=== PATIENT | female | born 1960 | race American Indian/Alaskan Native ===

== ENCOUNTER 2020-05-19 13:21 | Emergency (ER) | payer MEDICAID, OTHER ==
[2020-05-19] MEDS ORDERED: Naloxone 2 MG/2 ML Syringe IVPUSH ONE (13:39)
[2020-05-19] MEDS ORDERED: Naloxone 2 MG/2 ML Syringe ONE (13:40)
--- NOTE | 2020-05-19 13:45 | CR ---
EXAMINATION: Chest 1V Frontal SEX: Female AGE: 59 years CLINICAL HISTORY: 59-year-old unresponsive female emergency department with RESPIRATORY DISTRESS (responded to glucose, Narcan and CPR). Comparison chest 23 November 2010. Interpretation: (AP supine portable) external warp bleaching vat tender leads. *No acute new cardiopulmonary abnormality. Normal cardiac silhouette. No pulmonary vascular congestion, alveolar edema or dependent effusion. No lung mass, hilar lymphadenopathy or focal lobar pneumonia. No atelectasis/collapse. Eli thorax unremarkable. No pneumothorax or pneumomediastinum.
[2020-05-19] MEDS ORDERED: 50% Dextrose in Water 50 ML Syringe IVPUSH ONE (13:46)
[2020-05-19] MEDS: 50% Dextrose in Water 50 ML Syringe ONE ×4 (13:46→17:26)
[2020-05-19 13:52] LABS: ANION GAP 16.8 mEq/L (7-13); CHLORIDE,CL 101 mmol/L (98-107); SODIUM,NA 137 mmol/L (136-145)
[2020-05-19 13:55] LABS: ACETAMINOPHEN 0 ug/mL (10-30 (Therapeutic))
[2020-05-19] MEDS: 50% Dextrose in Water 50 ML Syringe IVPUSH ONE ×2 (15:30→15:31)
--- NOTE | 2020-05-19 16:01 | EDM.PDOC ---
ED HPI GENERAL MEDICAL PROBLEM - General Stated Complaint: CODE BLUE Time Seen by Provider: 05/19/20 13:21 Source of Information: Reports: Family History Limitations: Reports: No Limitations - History of Present Illness INITIAL COMMENTS - FREE TEXT/NARRATIVE: This 59 yo female patient was carried into the ED by her due to her being unresponsive and not breathing. Upon arrival in the ED, the patient was pulseless and apneic. Respirations were assisted with BVM and CPR was initiated. After 1 minute of CPR, the patient did have a pulse and started to breath on her own. The patient was given Narcan and D50 once an IV was established and blood sugar was noted to be 25. After 5-10 minutes, the patient began to respond more appropriately and would awaken on command. The patient was restrained for her own safety while her level of consciousness improved. Onset: Today, Sudden Duration: Constant Location: Reports: Generalized Quality: Reports: Other Severity: Severe Improves with: Reports: None Worsens with: Reports: None Context: Reports: Other - Related Data Allergies Allergy/AdvReac Type Severity Reaction Status Date / Time No Known Allergies Allergy Verified 09/23/15 15:10 Home Meds: Home Meds Fludrocortisone [Florinef] 0.1 mg PO WITHBREAKFAST 09/15/15 [History] Hydrocortisone 10 mg PO ASDIRECTED 09/15/15 [History] sitaGLIPtin Phos/Metformin HCl [Janumet 50-1,000 MG] 1 tab PO BID 11/20/16 [History] Aspirin [Children's Aspirin] 81 mg PO DAILY 11/21/16 [History] Cholecalciferol (Vitamin D3) [Vitamin D3] 1,000 units PO BID 11/21/16 [History] Lisinopril 2.5 mg PO DAILY 11/21/16 [History] Past Medical History HEENT History: Reports: Impaired Vision Genitourinary History: Reports: UTI, Recurrent [employer] History: Reports: Musculoskeletal History: Reports: Arthritis Endocrine/Metabolic History: Reports: [place]'s Disease, Diabetes, Type II - Past Surgical History GI Surgical History: Reports: Appendectomy Social & Family History - Family History Family Medical History: Noncontributory Cardiac: Reports: CAD, Hypertension Endocrine/Metabolic: Reports: Diabetes, type II - Tobacco Use Smoking Status *Q: Never Smoker - Caffeine Use Caffeine Use: Reports: None - Recreational Drug Use Recreational Drug Use: No - Living Situation & Occupation Living situation: Reports: , with Family Occupation: Employed ED ROS GENERAL - Review of Systems Review Of Systems: Comprehensive ROS is negative, except as noted in HPI. ED EXAM, NEURO - Physical Exam Exam: See Below Exam Limited By: Other (Unresponsive) General Appearance: Severe Distress Eye Exam: Bilateral Eye: EOMI, Normal Inspection, PERRL (sluggish, but reactive) Ears: Normal External Exam, Normal Canal, Hearing Grossly Normal, Normal TMs Nose: Normal Inspection, Normal Mucosa, No Blood Throat/Mouth: Normal Inspection, Normal Lips, Normal Teeth, Normal Gums, Normal Oropharynx, Normal Voice, No Airway Compromise Head Exam: Atraumatic, Normocephalic Neck: Normal Inspection, Supple, Non-Tender, Full Range of Motion Respiratory/Chest: Other (Apneic initially) Cardiovascular: Other (pulseless initially) GI/Abdominal: Normal Bowel Sounds, Soft, Non-Tender, No Organomegaly, No Distention, No Abnormal Bruit, No Mass (Female) Exam: Deferred Rectal (Female) Exam: Deferred Neurological: Alert, Normal Mood/Affect, Normal Dorsiflexion, CN II-XII Intact, Normal Plantar Flexion, Normal Gait, Normal Reflexes, No Motor/Sensory Deficits, Oriented x 3 Back Exam: Normal Inspection, Full Range of Motion, NT Extremities: Normal Inspection, Normal Range of Motion, Non-Tender, No Pedal Edema, Normal Capillary Refill Psychiatric: Normal Affect, Normal Mood Skin Exam: Warm, Dry, Intact, Normal Color, No Rash Course - Orders/Labs/Meds Labs: Laboratory Tests 05/19/20 05/19/20 05/19/20 Range/Units 13:15 13:15 13:16 WBC 11.9 H (5.0-10.0) 10^3/uL RBC 5.88 H (4.2-5.4) 10^6/uL Hgb 16.8 H (12.0-16.0) g/dL Hct 48.5 H (37.0-47.0) % MCV 82.5 (80-100) fL MCH 28.6 (27.0-34.0) pg MCHC 34.6 (33.0-35.0) g/dL Plt Count 237 (150-450) 10^3/uL Neut % (Auto) 50.0 (42.2-75.2) % Lymph % (Auto) 37.3 (20.5-50.1) % [place] % (Auto) 9.5 H (2-8) % Eos % (Auto) 2.9 (1.0-3.0) % Baso % (Auto) 0.3 (0.0-1.0) % Sodium (136-145) mmol/L Potassium (3.5-5.1) mmol/L Chloride (98-107) mmol/L Carbon Dioxide (21-32) mmol/L Anion Gap (7-13) mEq/L BUN (7-18) mg/dL Creatinine (0.55-1.02) mg/dL Est Cr Clr Drug Dosing Estimated GFR (MDRD) BUN/Creatinine Ratio (No establ ref range) Glucose (74-99) mg/dL Calcium (8.5-10.1) mg/dL Magnesium (1.8-2.4) mg/dL Total Bilirubin (0.2-1.0) mg/dL AST (15-37) U/L ALT (14-59) U/L Alkaline Phosphatase (46-116) U/L Total Protein (6.4-8.2) g/dL Albumin (3.4-5.0) g/dL Globulin Albumin/Globulin Ratio Urine Color Yellow (YELLOW) Urine Appearance Clear (CLEAR) Urine pH 5.5 (5.0-9.0) Ur Specific [place] 1.025 (1.005-1.030) Urine Protein Negative (NEGATIVE) Urine Glucose (UA) Negative (NEGATIVE) Urine Ketones Negative (NEGATIVE) Urine Occult Blood Negative (NEGATIVE) Urine Nitrite Negative (NEGATIVE) Urine Bilirubin Negative (NEGATIVE) Urine Urobilinogen 0.2 (0.2-1.0) mg/dL Ur Leukocyte Esterase Negative (NEGATIVE) Salicylates (2.8-20(Therapeutic)) mg/dL Urine Opiates Screen Positive H (NEGATIVE) Ur Oxycodone Screen Negative (NEGATIVE) Urine Methadone Screen Negative (NEGATIVE) Acetaminophen (10-30 (Therapeutic)) ug/mL Ur Barbiturates Screen Negative (NEGATIVE) U Tricyclic Antidepress Negative (NEGATIVE) Ur Phencyclidine Scrn Negative (NEGATIVE) Ur Amphetamine Screen Negative (NEGATIVE) U Methamphetamines Scrn Negative (NEGATIVE) Urine MDMA Screen Negative (NEGATIVE) U Benzodiazepines Scrn Negative (NEGATIVE) Urine Cocaine Screen Negative (NEGATIVE) U Marijuana (THC) Screen Negative (NEGATIVE) Ethyl Alcohol (0) mg/dL 05/19/20 05/19/20 Range/Units 13:16 13:16 WBC (5.0-10.0) 10^3/uL RBC (4.2-5.4) 10^6/uL Hgb (12.0-16.0) g/dL Hct (37.0-47.0) % MCV (80-100) fL MCH (27.0-34.0) pg MCHC (33.0-35.0) g/dL Plt Count (150-450) 10^3/uL Neut % (Auto) (42.2-75.2) % Lymph % (Auto) (20.5-50.1) % [place] % (Auto) (2-8) % Eos % (Auto) (1.0-3.0) % Baso % (Auto) (0.0-1.0) % Sodium 137 (136-145) mmol/L Potassium 5.8 H (3.5-5.1) mmol/L Chloride 101 (98-107) mmol/L Carbon Dioxide 25 (21-32) mmol/L Anion Gap 16.8 H (7-13) mEq/L BUN 30 H (7-18) mg/dL Creatinine 1.46 H (0.55-1.02) mg/dL Est Cr Clr Drug Dosing TNP Estimated GFR (MDRD) 37 BUN/Creatinine Ratio 20.5 (No establ ref range) Glucose 21 L* (74-99) mg/dL Calcium 9.9 (8.5-10.1) mg/dL Magnesium 1.6 L (1.8-2.4) mg/dL Total Bilirubin 0.7 (0.2-1.0) mg/dL AST 33 (15-37) U/L ALT 21 (14-59) U/L Alkaline Phosphatase 82 (46-116) U/L Total Protein 8.6 H (6.4-8.2) g/dL Albumin 3.8 (3.4-5.0) g/dL Globulin 4.8 Albumin/Globulin Ratio 0.8 Urine Color (YELLOW) Urine Appearance (CLEAR) Urine pH (5.0-9.0) Ur Specific [place] (1.005-1.030) Urine Protein (NEGATIVE) Urine Glucose (UA) (NEGATIVE) Urine Ketones (NEGATIVE) Urine Occult Blood (NEGATIVE) Urine Nitrite (NEGATIVE) Urine Bilirubin (NEGATIVE) Urine Urobilinogen (0.2-1.0) mg/dL Ur Leukocyte Esterase (NEGATIVE) Salicylates < 2.8 L (2.8-20(Therapeutic)) mg/dL Urine Opiates Screen (NEGATIVE) Ur Oxycodone Screen (NEGATIVE) Urine Methadone Screen (NEGATIVE) Acetaminophen 0 L (10-30 (Therapeutic)) ug/mL Ur Barbiturates Screen (NEGATIVE) U Tricyclic Antidepress (NEGATIVE) Ur Phencyclidine Scrn (NEGATIVE) Ur Amphetamine Screen (NEGATIVE) U Methamphetamines Scrn (NEGATIVE) Urine MDMA Screen (NEGATIVE) U Benzodiazepines Scrn (NEGATIVE) Urine Cocaine Screen (NEGATIVE) U Marijuana (THC) Screen (NEGATIVE) Ethyl Alcohol < 3 (0) mg/dL Meds: Medications Discontinued Medications Generic Name Dose Route Start Last Admin Trade Name Krystal PRN Reason Stop Dose Admin Dextrose/Water Confirm 05/19/20 13:40 05/19/20 13:46 Dextrose 50% In Water Administered 05/19/20 13:41 50 ml Dose Administration 50 ml .ROUTE .STK-MED ONE Dextrose/Water Confirm 05/19/20 15:19 05/19/20 15:30 Dextrose 50% In Water Administered 05/19/20 15:20 50 ml Dose Administration 50 ml .ROUTE .STK-MED ONE Dextrose/Water 50 ml 05/19/20 15:30 05/19/20 15:31 Dextrose 50% In Water IVPUSH 05/19/20 15:31 Not Given ONETIME ONE Naloxone HCl 2 mg 05/19/20 13:39 05/19/20 13:46 Narcan IVPUSH 05/19/20 13:40 2 mg ONETIME ONE Administration Naloxone HCl Confirm 05/19/20 13:40 05/19/20 15:29 Narcan Administered 05/19/20 13:41 Not Given Dose 2 mg .ROUTE .STK-MED ONE Departure - Departure Time of Disposition: 16:05 Disposition: Home, Self-Care 01 Condition: Fair Clinical Impression: Opioid use, Hypoglycemia - Discharge Information *PRESCRIPTION DRUG MONITORING PROGRAM REVIEWED*: Not Applicable *COPY OF PRESCRIPTION DRUG MONITORING REPORT IN PATIENT MARY: Not Applicable Instructions: Hypoglycemia, Warning Signs of Opioid Misuse, Blood Glucose Monitoring, Adult Care Plan Goals: The patient was advised of the examination, lab and treatments given to her. The patient was encouraged to monitor her blood sugar levels and avoid using opiate medications. If the patient has any additional symptoms or concerns, the patient should either return to the emergency department or visit her primary care facility.
== END 2020-05-19 16:32 | disposition home or self-care (01) ==
LOC: DL.ED 13:21
DX: F11.90 Opioid use, unspecified, uncomplicated (principal); E11.649 Type 2 diabetes mellitus with hypoglycemia without coma; Z79.82 Long term (current) use of aspirin; Z79.84 Long term (current) use of oral hypoglycemic drugs; Z90.49 Acquired absence of other specified parts of digestive tract; Z79.899 Other long term (current) drug therapy
CPT/HCPCS: 36415; 71045; 80053; 80305; 80307; 81003; 82962; 83735; 85025; 92950; 96374; 96375; 99285; J2310

== ENCOUNTER 2020-05-20 07:51 | Emergency (ER) | payer OTHER ==
[2020-05-20] MEDS: Naloxone 2 MG/2 ML Syringe ONE ×2 (07:57→09:20)
[2020-05-20] MEDS ORDERED: Lactated Ringers 1,000 ML IV ONE (08:06)
[2020-05-20 08:29] LABS: ANION GAP 14.7 mEq/L (7-13); CHLORIDE,CL 103 mmol/L (98-107); SODIUM,NA 136 mmol/L (136-145)
--- NOTE | 2020-05-20 08:45 | EDM.PDOC ---
ED HPI GENERAL MEDICAL PROBLEM - General Stated Complaint: LOW BLOOD PRESSURE Time Seen by Provider: 05/20/20 07:51 Source of Information: Reports: Patient, EMS, EMS Notes Reviewed, Family, RN, RN Notes Reviewed History Limitations: Reports: Altered Mental Status - History of Present Illness INITIAL COMMENTS - FREE TEXT/NARRATIVE: Patient presents to ER per [facility] with complaint of low blood sugar and low blood pressure. Patient was brought to ER yesterday carried by her and CPR was performed as she was pulseless and apneic. Patient was given Narcan as she was positive for opioids. Patient was then discharged home. Today upon arrival to the ER patient has altered mental status, is restless and agitated. Narcan given again today. EMS reports blood sugar was 27 upon their arrival to the home, D10 was given with a blood sugar of 67 follow-up. Bedside glucose in the ER is 138. Narcan administered again. Patient will respond with "what" when asked questions, but does not answer appropriately. states the patient has been laying on the couch since taken home from the hospital yesterday. Patient incontinent of urine and stool upon arrival to the ER. reports history of diabetes, does not take insulin as she was taken off the insulin, as well as Oregon's disease. Onset: Today, Sudden - Related Data Allergies Allergy/AdvReac Type Severity Reaction Status Date / Time No Known Allergies Allergy Verified 09/23/15 15:10 Home Meds: Home Meds Fludrocortisone [Florinef] 0.1 mg PO WITHBREAKFAST 09/15/15 [History] Hydrocortisone 10 mg PO ASDIRECTED 09/15/15 [History] sitaGLIPtin Phos/Metformin HCl [Janumet 50-1,000 MG] 1 tab PO BID 11/20/16 [History] Aspirin [Children's Aspirin] 81 mg PO DAILY 11/21/16 [History] Cholecalciferol (Vitamin D3) [Vitamin D3] 1,000 units PO BID 11/21/16 [History] Lisinopril 2.5 mg PO DAILY 11/21/16 [History] Past Medical History HEENT History: Reports: Impaired Vision Genitourinary History: Reports: UTI, 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 ED EXAM GENERAL NO PERIP PULSE - Physical Exam Exam: See Below Exam Limited By: Altered Mental Status General Appearance: No Apparent Distress, Lethargic Eye Exam: Bilateral Eye: EOMI, PERRL (3 sluggish) Ears: Normal External Exam, Hearing Grossly Normal Nose: Normal Inspection, Normal Mucosa, No Blood Throat/Mouth: Normal Inspection, Normal Lips, Normal Teeth, Normal Gums, Normal Oropharynx, Normal Voice, No Airway Compromise Head: Atraumatic, Normocephalic Neck: Normal Inspection, Supple, Non-Tender, Full Range of Motion Respiratory/Chest: No Respiratory Distress, No Accessory Muscle Use, Decreased Breath Sounds, Other (chest tenderness from CPR yesterday) Cardiovascular: Normal Peripheral Pulses, No Edema, No Gallop, No JVD, No Murmur, No Rub, Tachycardia GI/Abdominal: Normal Bowel Sounds, Soft, Non-Tender, Other (Incontinent of stool) (Female) Exam: Deferred Rectal (Female) Exam: Deferred Back Exam: Normal Inspection, Full Range of Motion, NT Extremities: Normal Inspection, Normal Range of Motion, Non-Tender, Normal Capillary Refill, No Pedal Edema Neurological: Alert, Inattentive, Slow to Respond Psychiatric: Anxious Skin Exam: Warm, Dry, Intact, Normal Color, No Rash Lymphatic: No Adenopathy Course - Vital Signs Last Recorded V/S: Last Vital Signs Temp 98.2 F 05/20/20 07:31 Pulse 104 H 05/20/20 07:31 Resp 16 05/20/20 07:31 BP 90/46 L 05/20/20 07:31 Pulse Ox 96 05/20/20 07:31 - Orders/Labs/Meds Orders: Active Orders 24 hr Category Date Time Status Blood Glucose Check, Bedside [RC] ONETIME Care 05/20/20 07:51 Active Blood Glucose Check, Bedside [RC] ONETIME Care 05/20/20 10:38 Active EKG Documentation Completion [RC] STAT Care 05/20/20 07:49 Active Sanchez Catheter Insertion [Insert Urinary Catheter] [OM. Care 05/20/20 08:00 Ordered PC] Q24H Urinary Catheter Assessment [RC] ASDIRECTED Care 05/20/20 07:50 Active Norepinephrine [Levophed] 4 mg Med 05/20/20 10:45 Active Dextrose 5% in Water 246 ml IV TITRATE Sodium Chloride 0.9% [Normal Saline] 1,000 ml Med 05/20/20 10:38 Active IV .BOLUS Medication Orders Norepinephrine Bitartrate 4 mg (/ Dextrose/Water) 250 mls @ 7.5 mls/hr IV TITRATE HEMALATHA; Protocol Last Admin: 05/20/20 11:12 Dose: 2 mcg/min, 7.5 mls/hr Documented by: JACOBY Sodium Chloride (Normal Saline) 1,000 mls @ 200 mls/hr IV .BOLUS ONE Stop: 05/20/20 15:37 Last Admin: 05/20/20 11:13 Dose: 200 mls/hr Documented by: JACOBY Labs: Laboratory Tests 05/20/20 05/20/20 05/20/20 Range/Units 07:37 08:00 08:00 WBC 10.9 H (5.0-10.0) 10^3/uL RBC 4.94 (4.2-5.4) 10^6/uL Hgb 14.2 D (12.0-16.0) g/dL Hct 41.4 (37.0-47.0) % MCV 83.8 (80-100) fL MCH 28.7 (27.0-34.0) pg MCHC 34.3 (33.0-35.0) g/dL Plt Count 185 (150-450) 10^3/uL Neut % (Auto) 55.2 (42.2-75.2) % Lymph % (Auto) 31.9 (20.5-50.1) % [place] % (Auto) 11.0 H (2-8) % Eos % (Auto) 1.7 (1.0-3.0) % Baso % (Auto) 0.2 (0.0-1.0) % Sodium 136 (136-145) mmol/L Potassium 4.7 (3.5-5.1) mmol/L Chloride 103 (98-107) mmol/L Carbon Dioxide 23 (21-32) mmol/L Anion Gap 14.7 H (7-13) mEq/L BUN 23 H (7-18) mg/dL Creatinine 1.47 H (0.55-1.02) mg/dL Est Cr Clr Drug Dosing TNP Estimated GFR (MDRD) 36 BUN/Creatinine Ratio 15.6 (No establ ref range) Glucose 153 H (74-99) mg/dL POC Glucose 138 H (70-105) mg/dl Lactic Acid (0.4-2.0) mmol/L Calcium 8.9 (8.5-10.1) mg/dL Total Bilirubin 1.0 (0.2-1.0) mg/dL AST 44 H (15-37) U/L ALT 18 (14-59) U/L Alkaline Phosphatase 62 (46-116) U/L C-Reactive Protein (0.0-0.9) mg/dL Total Protein 6.8 (6.4-8.2) g/dL Albumin 3.0 L (3.4-5.0) g/dL Globulin 3.8 Albumin/Globulin Ratio 0.79 Urine Color (YELLOW) Urine Appearance (CLEAR) Urine pH (5.0-9.0) Ur Specific [place] (1.005-1.030) Urine Protein (NEGATIVE) Urine Glucose (UA) (NEGATIVE) Urine Ketones (NEGATIVE) Urine Occult Blood (NEGATIVE) Urine Nitrite (NEGATIVE) Urine Bilirubin (NEGATIVE) Urine Urobilinogen (0.2-1.0) mg/dL Ur Leukocyte Esterase (NEGATIVE) Urine RBC /HPF Urine WBC (0-5/HPF) /HPF Ur Epithelial Cells (NOT SEEN) /HPF Urine Bacteria (0-FEW/HPF) /HPF Urine Opiates Screen (NEGATIVE) Ur Oxycodone Screen (NEGATIVE) Urine Methadone Screen (NEGATIVE) Ur Barbiturates Screen (NEGATIVE) U Tricyclic Antidepress (NEGATIVE) Ur Phencyclidine Scrn (NEGATIVE) Ur Amphetamine Screen (NEGATIVE) U Methamphetamines Scrn (NEGATIVE) Urine MDMA Screen (NEGATIVE) U Benzodiazepines Scrn (NEGATIVE) Urine Cocaine Screen (NEGATIVE) U Marijuana (THC) Screen (NEGATIVE) Ethyl Alcohol < 3 (0) mg/dL COVID-19 (UNA) (NEGATIVE) 05/20/20 05/20/2005/20/20 Range/Units 08:00 08:00 08:20 WBC (5.0-10.0) 10^3/uL RBC (4.2-5.4) 10^6/uL Hgb (12.0-16.0) g/dL Hct (37.0-47.0) % MCV (80-100) fL MCH (27.0-34.0) pg MCHC (33.0-35.0) g/dL Plt Count (150-450) 10^3/uL Neut % (Auto) (42.2-75.2) % Lymph % (Auto) (20.5-50.1) % [place] % (Auto) (2-8) % Eos % (Auto) (1.0-3.0) % Baso % (Auto) (0.0-1.0) % Sodium (136-145) mmol/L Potassium (3.5-5.1) mmol/L Chloride (98-107) mmol/L Carbon Dioxide (21-32) mmol/L Anion Gap (7-13) mEq/L BUN (7-18) mg/dL Creatinine (0.55-1.02) mg/dL Est Cr Clr Drug Dosing Estimated GFR (MDRD) BUN/Creatinine Ratio (No establ ref range) Glucose (74-99) mg/dL POC Glucose (70-105) mg/dl Lactic Acid 1.6 (0.4-2.0) mmol/L Calcium (8.5-10.1) mg/dL Total Bilirubin (0.2-1.0) mg/dL AST (15-37) U/L ALT (14-59) U/L Alkaline Phosphatase (46-116) U/L C-Reactive Protein 12.5 H (0.0-0.9) mg/dL Total Protein (6.4-8.2) g/dL Albumin (3.4-5.0) g/dL Globulin Albumin/Globulin Ratio Urine Color Yellow (YELLOW) Urine Appearance Clear (CLEAR) Urine pH 5.5 (5.0-9.0) Ur Specific [place] 1.025 (1.005-1.030) Urine Protein Negative (NEGATIVE) Urine Glucose (UA) Negative (NEGATIVE) Urine Ketones 40 H (NEGATIVE) Urine Occult Blood Trace-intact H (NEGATIVE) Urine Nitrite Negative (NEGATIVE) Urine Bilirubin Negative (NEGATIVE) Urine Urobilinogen 0.2 (0.2-1.0) mg/dL Ur Leukocyte Esterase Negative (NEGATIVE) Urine RBC 0-5 /HPF Urine WBC Not seen (0-5/HPF) /HPF Ur Epithelial Cells Rare (NOT SEEN) /HPF Urine Bacteria Not seen (0-FEW/HPF) /HPF Urine Opiates Screen (NEGATIVE) Ur Oxycodone Screen (NEGATIVE) Urine Methadone Screen (NEGATIVE) Ur Barbiturates Screen (NEGATIVE) U Tricyclic Antidepress (NEGATIVE) Ur Phencyclidine Scrn (NEGATIVE) Ur Amphetamine Screen (NEGATIVE) U Methamphetamines Scrn (NEGATIVE) Urine MDMA Screen (NEGATIVE) U Benzodiazepines Scrn (NEGATIVE) Urine Cocaine Screen (NEGATIVE) U Marijuana (THC) Screen (NEGATIVE) Ethyl Alcohol (0) mg/dL COVID-19 (UNA) (NEGATIVE) 05/20/20 05/20/20 05/20/20 Range/Units 08:20 08:32 09:04 WBC (5.0-10.0) 10^3/uL RBC (4.2-5.4) 10^6/uL Hgb (12.0-16.0) g/dL Hct (37.0-47.0) % MCV (80-100) fL MCH (27.0-34.0) pg MCHC (33.0-35.0) g/dL Plt Count (150-450) 10^3/uL Neut % (Auto) (42.2-75.2) % Lymph % (Auto) (20.5-50.1) % [place] % (Auto) (2-8) % Eos % (Auto) (1.0-3.0) % Baso % (Auto) (0.0-1.0) % Sodium (136-145) mmol/L Potassium (3.5-5.1) mmol/L Chloride (98-107) mmol/L Carbon Dioxide (21-32) mmol/L Anion Gap (7-13) mEq/L BUN (7-18) mg/dL Creatinine (0.55-1.02) mg/dL Est Cr Clr Drug Dosing Estimated GFR (MDRD) BUN/Creatinine Ratio (No establ ref range) Glucose (74-99) mg/dL POC Glucose 73 (70-105) mg/dl Lactic Acid (0.4-2.0) mmol/L Calcium (8.5-10.1) mg/dL Total Bilirubin (0.2-1.0) mg/dL AST (15-37) U/L ALT (14-59) U/L Alkaline Phosphatase (46-116) U/L C-Reactive Protein (0.0-0.9) mg/dL Total Protein (6.4-8.2) g/dL Albumin (3.4-5.0) g/dL Globulin Albumin/Globulin Ratio Urine Color (YELLOW) Urine Appearance (CLEAR) Urine pH (5.0-9.0) Ur Specific [place] (1.005-1.030) Urine Protein (NEGATIVE) Urine Glucose (UA) (NEGATIVE) Urine Ketones (NEGATIVE) Urine Occult Blood (NEGATIVE) Urine Nitrite (NEGATIVE) Urine Bilirubin (NEGATIVE) Urine Urobilinogen (0.2-1.0) mg/dL Ur Leukocyte Esterase (NEGATIVE) Urine RBC /HPF Urine WBC (0-5/HPF) /HPF Ur Epithelial Cells (NOT SEEN) /HPF Urine Bacteria (0-FEW/HPF) /HPF Urine Opiates Screen Positive H (NEGATIVE) Ur Oxycodone Screen Negative (NEGATIVE) Urine Methadone Screen Negative (NEGATIVE) Ur Barbiturates Screen Negative (NEGATIVE) U Tricyclic Antidepress Negative (NEGATIVE) Ur Phencyclidine Scrn Negative (NEGATIVE) Ur Amphetamine Screen Negative (NEGATIVE) U Methamphetamines Scrn Negative (NEGATIVE) Urine MDMA Screen Negative (NEGATIVE) U Benzodiazepines Scrn Negative (NEGATIVE) Urine Cocaine Screen Negative (NEGATIVE) U Marijuana (THC) Screen Negative (NEGATIVE) Ethyl Alcohol (0) mg/dL COVID-19 (UNA) Negative (NEGATIVE) Meds: Medications Generic Name Dose Route Start Last Admin Trade Name Freq PRN Reason Stop Dose Admin Norepinephrine Bitartrate 4 mg 250 mls @ 7.5 mls/hr 05/20/20 10:45 05/20/20 11:12 / Dextrose/Water IV 2 mcg/min TITRATE HEMALATHA 7.5 mls/hr Administration Protocol 2 MCG/MIN Sodium Chloride 1,000 mls @ 200 mls/hr 05/20/20 10:38 05/20/20 11:13 Normal Saline IV 05/20/20 15:37 200 mls/hr .BOLUS ONE Administration Discontinued Medications Generic Name Dose Route Start Last Admin Trade Name Krystal PRN Reason Stop Dose Admin Dexamethasone 8 mg 05/20/20 09:51 05/20/20 10:06 Dexamethasone IVPUSH 05/20/20 09:52 8 mg ONETIME ONE Administration Dextrose/Water 50 ml 05/20/20 09:07 05/20/20 09:15 Dextrose 50% In Water IVPUSH 05/20/20 09:08 50 ml ONETIME ONE Administration Hydrocortisone Sodium Succinate 100 mg 05/20/20 10:24 05/20/20 10:35 Solu-Cortef IVPUSH 05/20/20 10:25 100 mg ONETIME ONE Administration Lactated Ringer's 1,000 mls @ 999 mls/hr 05/20/20 08:06 05/20/20 08:03 Ringers, Lactated IV 05/20/20 09:06 999 mls/hr .BOLUS ONE Administration Sodium Chloride 1,000 mls @ 999 mls/hr 05/20/20 09:07 05/20/20 09:11 Normal Saline IV 05/20/20 10:07 999 mls/hr .BOLUS ONE Administration Naloxone HCl Confirm 05/20/20 07:57 05/20/20 09:20 Narcan Administered 05/20/20 07:58 Not Given Dose 2 mg .ROUTE .STK-MED ONE Naloxone HCl 2 mg 05/20/20 09:19 05/20/20 07:57 Narcan IVPUSH 05/20/20 09:20 2 mg ONETIME ONE Administration - Radiology Interpretation Free Text/Narrative:: Head CT wo contrast: PROCEDURE INFORMATION: Exam: CT Head Without Contrast Exam date and time: 05/20/2020 9:26 AM Age: 59 years old Clinical indication: Altered mental status/memory loss TECHNIQUE: Imaging protocol: Computed tomography of the head without contrast. Radiation optimization: All CT scans at this facility use at least one of these dose optimization techniques: automated exposure control; mA and/or kV adjustment per patient size (includes targeted exams where dose is matched to clinical indication); or iterative reconstruction. COMPARISON: No relevant prior studies available. FINDINGS: Brain: Normal. No hemorrhage. Unremarkable white matter. No mass effect. Ventricles: Normal. No ventriculomegaly. Bones/joints: Unremarkable. No acute fracture. Sinuses: Visualized sinuses are unremarkable. No fluid levels. Mastoid air cells: Visualized mastoid air cells are well aerated. Soft tissues: Unremarkable. IMPRESSION: No acute intracranial abnormality. Thank you for allowing us to participate in the care of your patient. Dictated and Authenticated by: El Mattson MD 05/20/2020 9:55 AM Central Time ([place] & [place]) See rad report - Re-Assessments/Exams Free Text/Narrative Re-Assessment/Exam: 05/20/20 10:39 Patient case discussed with Dr. Youngblood in the ER at [facility]. Dr. Youngblood agreed to accept the patient for transfer to [facility]. Departure - Departure Time of Disposition: 11:18 Disposition: DC/Tfer to [facility] Condition: Serious Clinical Impression: Hypoglycemia, Addisons disease, Acute adrenal crisis, Opiate abuse, continuous Diabetes mellitus Qualifiers: Diabetes mellitus type: type 2 Diabetes mellitus moth exterminator insulin use: without moth exterminator use Diabetes mellitus complication status: with hypoglycemia Diabetes mellitus complication detail: without coma Qualified Code(s): E11.649 - Type 2 diabetes mellitus with hypoglycemia without coma - Discharge Information *PRESCRIPTION DRUG MONITORING PROGRAM REVIEWED*: No *COPY OF PRESCRIPTION DRUG MONITORING REPORT IN PATIENT MARY: No Forms: ED Department Discharge, Interfacility Transfer [facility] Sepsis Event Note (ED) - Focused Exam Vital Signs: Vital Signs Temp Pulse Resp BP Pulse Ox 05/20/20 07:31 98.2 F 104 H 16 90/46 L 96 - My Orders Last 24 Hours: My Active Orders 05/20/20 07:49 EKG Documentation Completion [RC] STAT 05/20/20 07:50 Urinary Catheter Assessment [RC] ASDIRECTED 05/20/20 07:51 Blood Glucose Check, Bedside [RC] ONETIME 05/20/20 08:00 Sanchez Catheter Insertion [Insert Urinary Catheter] [OM.PC] Q24H 05/20/20 10:38 Blood Glucose Check, Bedside [RC] ONETIME Sodium Chloride 0.9% [Normal Saline] 1,000 ml IV .BOLUS 05/20/20 10:45 Norepinephrine [Levophed] 4 mg Dextrose 5% in Water 246 ml IV TITRATE - Assessment/Plan Last 24 Hours: My Active Orders 05/20/20 07:49 EKG Documentation Completion [RC] STAT 05/20/20 07:50 Urinary Catheter Assessment [RC] ASDIRECTED 05/20/20 07:51 Blood Glucose Check, Bedside [RC] ONETIME 05/20/20 08:00 Sanchez Catheter Insertion [Insert Urinary Catheter] [OM.PC] Q24H 05/20/20 10:38 Blood Glucose Check, Bedside [RC] ONETIME Sodium Chloride 0.9% [Normal Saline] 1,000 ml IV .BOLUS 05/20/20 10:45 Norepinephrine [Levophed] 4 mg Dextrose 5% in Water 246 ml IV TITRATE
[2020-05-20 09:00] VITALS: BP 90/46; PULSE 104
[2020-05-20] MEDS ORDERED: 50% Dextrose in Water 50 ML Syringe IVPUSH ONE (09:07)
[2020-05-20] MEDS ORDERED: Sodium Chloride 0.9% 1,000 ML IV ONE ×2 (09:07→10:38)
[2020-05-20] MEDS ORDERED: Naloxone 2 MG/2 ML Syringe IVPUSH ONE (09:19)
[2020-05-20] MEDS ORDERED: Dexamethasone 4 MG/ML SDV IVPUSH ONE (09:51)
--- NOTE | 2020-05-20 09:55 | CT ---
PROCEDURE INFORMATION: Exam: CT Head Without Contrast Exam date and time: 05/20/2020 9:26 AM Age: 59 years old Clinical indication: Altered mental status/memory loss TECHNIQUE: Imaging protocol: Computed tomography of the head without contrast. Radiation optimization: All CT scans at this facility use at least one of these dose optimization techniques: automated exposure control; mA and/or kV adjustment per patient size (includes targeted exams where dose is matched to clinical indication); or iterative reconstruction. COMPARISON: No relevant prior studies available. FINDINGS: Brain: Normal. No hemorrhage. Unremarkable white matter. No mass effect. Ventricles: Normal. No ventriculomegaly. Bones/joints: Unremarkable. No acute fracture. Sinuses: Visualized sinuses are unremarkable. No fluid levels. Mastoid air cells: Visualized mastoid air cells are well aerated. Soft tissues: Unremarkable. IMPRESSION: No acute intracranial abnormality.
[2020-05-20] MEDS ORDERED: Hydrocortisone Sodium Succinate 100 MG/2 ML SDV IVPUSH ONE (10:24)
[2020-05-20] MEDS ORDERED: Norepinephrine 4 MG in Dextrose 5% in Water 246 ML IV SCH ×2 (10:45)
== END 2020-05-20 11:24 ==
LOC: DL.ED 07:51
DX: E11.649 Type 2 diabetes mellitus with hypoglycemia without coma (principal); E27.1 Primary adrenocortical insufficiency; E27.2 Addisonian crisis; F11.10 Opioid abuse, uncomplicated; M19.90 Unspecified osteoarthritis, unspecified site; Z79.82 Long term (current) use of aspirin; Z79.899 Other long term (current) drug therapy; Z20.828 Contact with and (suspected) exposure to other viral communicable diseases
CPT/HCPCS: 36415; 51702; 70450; 80053; 80305-QW; 80307; 81001; 82962; 83605; 85025; 86140; 93005; 96361; 96374; 96375; 99284; 99285-25; J1100; J1720; J2310; J7030; J7060; J7120; U0002

== ENCOUNTER 2020-09-24 14:08 | Emergency (ER) | payer MEDICAID, OTHER ==
[2020-09-24 14:16] VITALS: BP 109/69; PULSE 114
--- NOTE | 2020-09-24 14:36 | EDM.PDOC ---
ED HPI GENERAL MEDICAL PROBLEM - General Chief Complaint: Diabetic Complaint Stated Complaint: AMBULANCE Time Seen by Provider: 09/24/20 14:20 Source of Information: Reports: EMS Notes Reviewed, RN, RN Notes Reviewed History Limitations: Reports: Altered Mental Status - History of Present Illness INITIAL COMMENTS - FREE TEXT/NARRATIVE: 60 year-old female with a history of DM and [place] who presents to the ER unresponsive. Patient is reported to have been seen last well 14 hours ago. EMS reports a tooth infection one year ago. Temperature was 105 with pupils 4 mm and brisk bilaterally. Vital signs stable at this time. Patient is noted to be unresponsive to painful stimuli. BS was normal. 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: EKG, IV/IO - Related Data Allergies Allergy/AdvReac Type Severity Reaction Status Date / Time No Known Allergies Allergy Verified 09/23/15 15:10 Home Meds: Home Meds Fludrocortisone [Florinef] 0.1 mg PO WITHBREAKFAST 09/15/15 [History] Hydrocortisone 10 mg PO ASDIRECTED 09/15/15 [History] sitaGLIPtin Phos/Metformin HCl [Janumet 50-1,000 MG] 1 tab PO BID 11/20/16 [History] Aspirin [Children's Aspirin] 81 mg PO DAILY 11/21/16 [History] Cholecalciferol (Vitamin D3) [Vitamin D3] 1,000 units PO BID 11/21/16 [History] Lisinopril 2.5 mg PO DAILY 11/21/16 [History] Past Medical History HEENT History: Reports: Impaired Vision Genitourinary History: Reports: UTI, Recurrent [employer] History: Reports: Musculoskeletal History: Reports: Arthritis Endocrine/Metabolic History: Reports: [place]'s Disease, Diabetes, Type II - Past Surgical History GI Surgical History: Reports: Appendectomy Social & Family History - Family History Family Medical History: No Pertinent Family History Cardiac: Reports: CAD, Hypertension Endocrine/Metabolic: Reports: Diabetes, type II - Caffeine Use Caffeine Use: Reports: None - Living Situation & Occupation Living situation: Reports: , with Family Occupation: Employed ED ROS GENERAL - Review of Systems Review Of Systems: Unable To Obtain Reason Not Obtained: Patient unresponsive ED EXAM GENERAL NO PERIP PULSE - Physical Exam Exam: See Below Exam Limited By: Other (Unrespomnsive) General Appearance: Other (Unresponsive) Eye Exam: Bilateral Eye: Normal Inspection Ears: Normal External Exam, Normal Canal, Hearing Grossly Normal, Normal TMs Nose: Normal Inspection, Normal Mucosa, No Blood Head: Atraumatic, Normocephalic Neck: Normal Inspection Respiratory/Chest: No Respiratory Distress, No Accessory Muscle Use, Rhonchi (in the lower lobes bilaterally) Cardiovascular: Normal Peripheral Pulses, Regular Rate, Rhythm, No Edema GI/Abdominal: Normal Bowel Sounds, Soft, No Distention (Female) Exam: Deferred Rectal (Female) Exam: Deferred Extremities: Normal Inspection, No Pedal Edema Neurological: Unresponsive Skin Exam: Warm, Dry Course - Vital Signs Last Recorded V/S: Last Vital Signs Temp 102.4 F H 09/24/20 16:50 Pulse 114 H 09/24/20 14:08 Resp BP 109/69 09/24/20 14:08 Pulse Ox 94 L 09/24/20 14:08 - Orders/Labs/Meds Labs: Laboratory Tests 09/24/20 09/24/20 09/24/20 Range/Units 14:27 14:29 14:29 WBC 11.3 H (5.0-10.0) 10^3/uL RBC 6.06 H (4.2-5.4) 10^6/uL Hgb 17.3 H D (12.0-16.0) g/dL Hct 49.3 H (37.0-47.0) % MCV 81.4 (80-100) fL MCH 28.5 (27.0-34.0) pg MCHC 35.1 H (33.0-35.0) g/dL Plt Count 166 (150-450) 10^3/uL Neut % (Auto) 48.2 (42.2-75.2) % Lymph % (Auto) 29.2 (20.5-50.1) % [place] % (Auto) 21.0 H (2-8) % Eos % (Auto) 1.4 (1.0-3.0) % Baso % (Auto) 0.2 (0.0-1.0) % Add Manual Diff Yes Neutrophils % (Manual) 46 (42-75) % Lymphocytes % (Manual) 29 (20-50) % Monocytes % (Manual) 24 H (2-8) % Eosinophils % (Manual) 1 (1-3) % Sodium 137 (136-145) mmol/L Potassium 3.3 L (3.5-5.1) mmol/L Chloride 99 (98-107) mmol/L Carbon Dioxide 25 (21-32) mmol/L Anion Gap 16.3 H (7-13) mEq/L BUN 19 H (7-18) mg/dL Creatinine 1.40 H (0.55-1.02) mg/dL Est Cr Clr Drug Dosing TNP Estimated GFR (MDRD) 38 BUN/Creatinine Ratio 13.6 (No establ ref range) Glucose 88 (74-99) mg/dL Lactic Acid (0.4-2.0) mmol/L Calcium 8.8 (8.5-10.1) mg/dL Total Bilirubin 0.7 (0.2-1.0) mg/dL AST 53 H (15-37) U/L ALT 39 (14-59) U/L Alkaline Phosphatase 110 (46-116) U/L Total Protein 7.5 (6.4-8.2) g/dL Albumin 3.9 (3.4-5.0) g/dL Globulin 3.6 Albumin/Globulin Ratio 1.1 TSH, Ultra Sensitive (0.36-3.74) uIU/mL Urine Color (YELLOW) Urine Appearance (CLEAR) Urine pH (5.0-9.0) Ur Specific [place] (1.005-1.030) Urine Protein (NEGATIVE) Urine Glucose (UA) (NEGATIVE) Urine Ketones (NEGATIVE) Urine Occult Blood (NEGATIVE) Urine Nitrite (NEGATIVE) Urine Bilirubin (NEGATIVE) Urine Urobilinogen (0.2-1.0) mg/dL Ur Leukocyte Esterase (NEGATIVE) Urine RBC /HPF Urine WBC (0-5/HPF) /HPF Ur Epithelial Cells (NOT SEEN) /HPF Amorphous Sediment (NOT SEEN) /HPF Urine Bacteria (0-FEW/HPF) /HPF Urine Mucus (NOT SEEN) /LPF Urine Opiates Screen (NEGATIVE) Ur Oxycodone Screen (NEGATIVE) Urine Methadone Screen (NEGATIVE) Ur Barbiturates Screen (NEGATIVE) U Tricyclic Antidepress (NEGATIVE) Ur Phencyclidine Scrn (NEGATIVE) Ur Amphetamine Screen (NEGATIVE) U Methamphetamines Scrn (NEGATIVE) Urine MDMA Screen (NEGATIVE) U Benzodiazepines Scrn (NEGATIVE) Urine Cocaine Screen (NEGATIVE) U Marijuana (THC) Screen (NEGATIVE) SARS-CoV-2 RNA (UNA) Positive H (NEGATIVE) 09/24/20 09/24/20 09/24/20 Range/Units 14:29 14:29 15:10 WBC (5.0-10.0) 10^3/uL RBC (4.2-5.4) 10^6/uL Hgb (12.0-16.0) g/dL Hct (37.0-47.0) % MCV (80-100) fL MCH (27.0-34.0) pg MCHC (33.0-35.0) g/dL Plt Count (150-450) 10^3/uL Neut % (Auto) (42.2-75.2) % Lymph % (Auto) (20.5-50.1) % [place] % (Auto) (2-8) % Eos % (Auto) (1.0-3.0) % Baso % (Auto) (0.0-1.0) % Add Manual Diff Neutrophils % (Manual) (42-75) % Lymphocytes % (Manual) (20-50) % Monocytes % (Manual) (2-8) % Eosinophils % (Manual) (1-3) % Sodium (136-145) mmol/L Potassium (3.5-5.1) mmol/L Chloride (98-107) mmol/L Carbon Dioxide (21-32) mmol/L Anion Gap (7-13) mEq/L BUN (7-18) mg/dL Creatinine (0.55-1.02) mg/dL Est Cr Clr Drug Dosing Estimated GFR (MDRD) BUN/Creatinine Ratio (No establ ref range) Glucose (74-99) mg/dL Lactic Acid 1.1 (0.4-2.0) mmol/L Calcium (8.5-10.1) mg/dL Total Bilirubin (0.2-1.0) mg/dL AST (15-37) U/L ALT (14-59) U/L Alkaline Phosphatase (46-116) U/L Total Protein (6.4-8.2) g/dL Albumin (3.4-5.0) g/dL Globulin Albumin/Globulin Ratio TSH, Ultra Sensitive 1.91 (0.36-3.74) uIU/mL Urine Color (YELLOW) Urine Appearance (CLEAR) Urine pH (5.0-9.0) Ur Specific [place] (1.005-1.030) Urine Protein (NEGATIVE) Urine Glucose (UA) (NEGATIVE) Urine Ketones (NEGATIVE) Urine Occult Blood (NEGATIVE) Urine Nitrite (NEGATIVE) Urine Bilirubin (NEGATIVE) Urine Urobilinogen (0.2-1.0) mg/dL Ur Leukocyte Esterase (NEGATIVE) Urine RBC /HPF Urine WBC (0-5/HPF) /HPF Ur Epithelial Cells (NOT SEEN) /HPF Amorphous Sediment (NOT SEEN) /HPF Urine Bacteria (0-FEW/HPF) /HPF Urine Mucus (NOT SEEN) /LPF Urine Opiates Screen Negative (NEGATIVE) Ur Oxycodone Screen Negative (NEGATIVE) Urine Methadone Screen Negative (NEGATIVE) Ur Barbiturates Screen Negative (NEGATIVE) U Tricyclic Antidepress Negative (NEGATIVE) Ur Phencyclidine Scrn Negative (NEGATIVE) Ur Amphetamine Screen Negative (NEGATIVE) U Methamphetamines Scrn Negative (NEGATIVE) Urine MDMA Screen Negative (NEGATIVE) U Benzodiazepines Scrn Negative (NEGATIVE) Urine Cocaine Screen Negative (NEGATIVE) U Marijuana (THC) Screen Negative (NEGATIVE) SARS-CoV-2 RNA (UNA) (NEGATIVE) 09/24/ Range/Units 15:10 WBC (5.0-10.0) 10^3/uL RBC (4.2-5.4) 10^6/uL Hgb (12.0-16.0) g/dL Hct (37.0-47.0) % MCV (80-100) fL MCH (27.0-34.0) pg MCHC (33.0-35.0) g/dL Plt Count (150-450) 10^3/uL Neut % (Auto) (42.2-75.2) % Lymph % (Auto) (20.5-50.1) % [place] % (Auto) (2-8) % Eos % (Auto) (1.0-3.0) % Baso % (Auto) (0.0-1.0) % Add Manual Diff Neutrophils % (Manual) (42-75) % Lymphocytes % (Manual) (20-50) % Monocytes % (Manual) (2-8) % Eosinophils % (Manual) (1-3) % Sodium (136-145) mmol/L Potassium (3.5-5.1) mmol/L Chloride (98-107) mmol/L Carbon Dioxide (21-32) mmol/L Anion Gap (7-13) mEq/L BUN (7-18) mg/dL Creatinine (0.55-1.02) mg/dL Est Cr Clr Drug Dosing Estimated GFR (MDRD) BUN/Creatinine Ratio (No establ ref range) Glucose (74-99) mg/dL Lactic Acid (0.4-2.0) mmol/L Calcium (8.5-10.1) mg/dL Total Bilirubin (0.2-1.0) mg/dL AST (15-37) U/L ALT (14-59) U/L Alkaline Phosphatase (46-116) U/L Total Protein (6.4-8.2) g/dL Albumin (3.4-5.0) g/dL Globulin Albumin/Globulin Ratio TSH, Ultra Sensitive (0.36-3.74) uIU/mL Urine Color Yellow (YELLOW) Urine Appearance Slightly cloudy (CLEAR) Urine pH 5.5 (5.0-9.0) Ur Specific [place] 1.025 (1.005-1.030) Urine Protein 30 H (NEGATIVE) Urine Glucose (UA) Negative (NEGATIVE) Urine Ketones Negative (NEGATIVE) Urine Occult Blood Moderate H (NEGATIVE) Urine Nitrite Negative (NEGATIVE) Urine Bilirubin Negative (NEGATIVE) Urine Urobilinogen 0.2 (0.2-1.0) mg/dL Ur Leukocyte Esterase Negative (NEGATIVE) Urine RBC 10-20 H /HPF Urine WBC 0-5 (0-5/HPF) /HPF Ur Epithelial Cells Few (NOT SEEN) /HPF Amorphous Sediment Few (NOT SEEN) /HPF Urine Bacteria Rare (0-FEW/HPF) /HPF Urine Mucus Few H (NOT SEEN) /LPF Urine Opiates Screen (NEGATIVE) Ur Oxycodone Screen (NEGATIVE) Urine Methadone Screen (NEGATIVE) Ur Barbiturates Screen (NEGATIVE) U Tricyclic Antidepress (NEGATIVE) Ur Phencyclidine Scrn (NEGATIVE) Ur Amphetamine Screen (NEGATIVE) U Methamphetamines Scrn (NEGATIVE) Urine MDMA Screen (NEGATIVE) U Benzodiazepines Scrn (NEGATIVE) Urine Cocaine Screen (NEGATIVE) U Marijuana (THC) Screen (NEGATIVE) SARS-CoV-2 RNA (UNA) (NEGATIVE) Meds: Medications Discontinued Medications Generic Name Dose Route Start Last Admin Trade Name Freq PRN Reason Stop Dose Admin Acetaminophen 650 mg 09/24/20 16:18 09/24/20 16:23 Tylenol RECTAL 09/24/20 16:19 650 mg NOW STA Administration - Re-Assessments/Exams Free Text/Narrative Re-Assessment/Exam: reviewed patient findings, Labs and Ct can results with through [facility] and she was accepted for transfer for CVA rule out with COVID-19. Patient was reported to have open her eyes in the CT room and looked around but did not respond to any question. She was also positive for COVID-19. She was also moving her arms when straight-cath for a urine sample. Tylenol 650 mg was administered rectal for fever control. updated on patient's status. 09/26/20 19:09 Departure - Departure Time of Disposition: 16:20 Disposition: Admitted As Inpatient 66 Condition: Poor Clinical Impression: COVID-19 CVA (cerebral vascular accident) Qualifiers: CVA mechanism: unspecified Qualified Code(s): I63.9 - Cerebral infarction, un specified - Discharge Information Forms: ED Department Discharge, Interfacility Transfer [facility] Sepsis Event Note (ED) - Evaluation Sepsis Screening Result: No Definite Risk
[2020-09-24 15:01] LABS: ANION GAP 16.3 mEq/L (7-13); CHLORIDE,CL 99 mmol/L (98-107); SODIUM,NA 137 mmol/L (136-145)
--- NOTE | 2020-09-24 15:04 | CT ---
PROCEDURE INFORMATION: Exam: CT Head Without Contrast Exam date and time: 09/24/2020 2:51 PM Age: 60 years old Clinical indication: Other: Unresponsive TECHNIQUE: Imaging protocol: Computed tomography of the head without contrast. Radiation optimization: All CT scans at this facility use at least one of these dose optimization techniques: automated exposure control; mA and/or kV adjustment per patient size (includes targeted exams where dose is matched to clinical indication); or iterative reconstruction. COMPARISON: CT Head wo Cont 05/20/2020 9:26 AM FINDINGS: Brain: No acute hemorrhage. Unremarkable white matter. No mass effect. There is a slightly prominent right MCA branch vessel in the sylvian fissure, see image 13 series 2. Cerebral ventricles: No ventriculomegaly. Bones/joints: Unremarkable. No acute fracture. Paranasal sinuses: Visualized sinuses are unremarkable. No fluid levels. Mastoid air cells: Visualized mastoid air cells are well aerated. Soft tissues: Unremarkable. IMPRESSION: No acute intracranial hemorrhage. No mass effect. Slightly prominent peripheral right MCA branch vessel. If there is concern for a CVA, CT angiogram would be advised to further evaluate
--- NOTE | 2020-09-24 15:08 | CR ---
PROCEDURE INFORMATION: Exam: XR Chest, 1 View Exam date and time: 09/24/2020 3:03 PM Age: 60 years old Clinical indication: Other: Unresponsive TECHNIQUE: Imaging protocol: XR of the chest Views: 1 view. COMPARISON: CR Chest 1V Frontal 05/19/2020 1:28 PM FINDINGS: Lungs: Unremarkable. No consolidation. Pleural space: Unremarkable. No pleural effusion. No pneumothorax. Heart/Mediastinum: Unremarkable. No cardiomegaly. Bones/joints: Unremarkable. IMPRESSION: No acute findings.
[2020-09-24] MEDS ORDERED: Acetaminophen 650 MG Supp RECTAL STA (16:18)
== END 2020-09-24 16:50 | disposition critical access hospital (66) ==
LOC: DL.ED 14:08
DX: U07.1 COVID-19 (principal); I63.9 Cerebral infarction, unspecified; M19.90 Unspecified osteoarthritis, unspecified site; E11.9 Type 2 diabetes mellitus without complications; Z79.82 Long term (current) use of aspirin; Z79.84 Long term (current) use of oral hypoglycemic drugs; Z79.899 Other long term (current) drug therapy
CPT/HCPCS: 36415; 70450; 71045; 80053; 80305; 81001; 83605; 84443; 85025; 87040; 87635; 93005; 99285; A9270; U0002

== ENCOUNTER 2021-06-30 17:09 | Inpatient (IN) | payer MEDICAID ==
[2021-06-30] MEDS ORDERED: Dexamethasone 4 MG/ML SDV IVPUSH ONE (17:33)
[2021-06-30] MEDS ORDERED: Ondansetron 4 MG/2 ML SDV IV ONE (17:34)
[2021-06-30] MEDS ORDERED: Sodium Chloride 0.9% 1,000 ML IV ONE ×5 (17:34→23:16)
[2021-06-30] MEDS ORDERED: Sodium Chloride 0.9% 10 ML Syringe FLUSH PRN (17:35)
[2021-06-30 18:19] LABS: ANION GAP 18.1 mEq/L (7-13); CHLORIDE,CL 93 mmol/L (98-107); SODIUM,NA 130 mmol/L (136-145)
--- NOTE | 2021-06-30 18:54 | EDM.PDOC ---
Scribed by Sybil Leonard 06/30/21 2433 for Phoenix Augustin MD <Phoenix Augustin - Last Filed: 06/30/21 18:52> ED HPI GENERAL MEDICAL PROBLEM - General Chief Complaint: Abdominal Pain Stated Complaint: FLU FOR FOUR DAYS, NOT GETTING BETTER,NOT EATING Time Seen by Provider: 06/30/21 17:33 Source of Information: Reports: Patient, RN, RN Notes Reviewed History Limitations: Reports: No Limitations - History of Present Illness INITIAL COMMENTS - FREE TEXT/NARRATIVE: Patient presents to ED by POV stating that she has not felt well for several days with complaint of nausea, vomiting, diarrhea and generalized abdominal discomfort. She states for the past 1 to 2 days she has mostly stayed in bed with the exception of running to the bathroom for diarrhea. She has loss of appetite and has been unable to keep any food or liquid down. 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 Denies fevers, chills, cough or chest pain. She denies any lightheadedness or syncope. Onset: Gradual Duration: Getting Worse Location: Reports: Abdomen Quality: Reports: Ache Severity: Severe Improves with: Reports: None Worsens with: Reports: None Associated Symptoms: Reports: No Other Symptoms - Related Data Allergies Allergy/AdvReac Type Severity Reaction Status Date / Time No Known Allergies Allergy Verified 06/30/21 18:07 Home Meds: Home Meds Fludrocortisone [Florinef] 0.1 mg PO WITHBREAKFAST 09/15/15 [History] Hydrocortisone 10 mg PO .2PM 09/15/15 [History] Lisinopril 2.5 mg PO DAILY 11/21/16 [History] Aspirin [Aspirin EC] 81 mg PO DAILY 06/30/21 [History] Cholecalciferol (Vitamin D3) [Vitamin D3] 75 mcg PO DAILY 06/30/21 [History] Clopidogrel Bisulfate [Plavix] 75 mg PO DAILY 06/30/21 [History] Hydrocortisone 20 mg PO .MORNING 06/30/21 [History] atorvaSTATin Calcium [Atorvastatin Calcium] 40 mg PO .EVENING 06/30/21 [History] metFORMIN [Glucophage] 500 mg PO DAILY 06/30/21 [History] Past Medical History HEENT History: Reports: Impaired Vision Genitourinary History: Reports: UTI, Recurrent 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: Musculoskeletal History: Reports: Arthritis Endocrine/Metabolic History: Reports: [place]'s Disease, Diabetes, Type II - Past Surgical History GI Surgical History: Reports: Appendectomy Social & Family History - Family History Family Medical History: No Pertinent Family History Cardiac: Reports: CAD, Hypertension Endocrine/Metabolic: Reports: Diabetes, type II - Caffeine Use Caffeine Use: Reports: None - Living Situation & Occupation Living situation: Reports: , with Family Occupation: Employed ED ROS GENERAL - Review of Systems Review Of Systems: Comprehensive ROS is negative, except as noted in HPI. ED EXAM, GENERAL - Physical Exam Exam: See Below Exam Limited By: No Limitations General Appearance: Alert, No Apparent Distress, Other (Chronically ill appearing) Eye Exam: Bilateral Eye: Normal Inspection Nose: Normal Inspection Throat/Mouth: Normal Inspection, Normal Lips, Normal Voice, No Airway Compromise Head: Atraumatic, Normocephalic Neck: Normal Inspection Respiratory/Chest: No Respiratory Distress, Lungs Clear, Normal Breath Sounds, No Accessory Muscle Use, Chest Non-Tender Cardiovascular: Regular Rate, Rhythm, No Edema GI/Abdominal: Normal Bowel Sounds, Soft, No Organomegaly, No Distention, Tender (Mild generalized tenderness). No: Guarding, Rigid, Rebound (Female) Exam: Deferred Rectal (Female) Exam: Deferred Back Exam: Full Range of Motion. 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 Departure - Departure Disposition: Admitted As Inpatient 66 Clinical Impression: Addisonian crisis Hypotension Qualifiers: Hypotension type: unspecified hypotension type Qualified Code(s): I95.9 - Hypotension, unspecified - Discharge Information Forms: ED Department Discharge <Neetu Fields - Last Filed: 07/01/21 00:44> #1 Interpretation EKG Date: 06/30/21 Time: 21:55 Rhythm: NSR Rate (Beats/Min): 56 Welch: Normal P-Wave: Present QRS: RBBB Comparison: Change From Previous EKG Course - Radiology Interpretation Free Text/Narrative:: Chest xray: [facility] Final Radiology Report Call: [phone] assistance Online chat: [email or web address] Name: LENIN DE LEON Age: 60Years F Date: 06/30/2021 SSN: -- : 1960 Study: CR CHEST 1V FRONTAL Requesting Physician: Neetu Fields Images: 1 Addl Studies: Provided Clinical History: chest pain Contrast: Contrast Medium: Contrast Amount: Contrast Method: CONFIDENTIALITY STATEMENT This report is intended only for use by the referring physician, and only in accordance with law. If you received this in error, call [phone]. Page 1 of 1 PROCEDURE INFORMATION: Exam: XR Chest Exam date and time: 06/30/2021 11:16 PM Age: 60 years old Clinical indication: Pain; Left-sided; Additional info: Chest pain TECHNIQUE: Imaging protocol: XR of the chest. Views: 1 view. COMPARISON: CR Chest 1V Frontal 09/24/2020 3:03 PM FINDINGS: Lungs: Mildly prominent interstitial markings and mild peribronchial cuffing in both lungs. No focal airspace opacities. Pleural spaces: Unremarkable. No pleural effusion. No pneumothorax. Heart/Mediastinum: Unremarkable. No cardiomegaly. Diaphragm: Mildly elevated right hemidiaphragm. Bones/joints: Unremarkable. IMPRESSION: Mildly prominent interstitial markings and mild peribronchial cuffing in both lungs which are nonspecific findings but may be seen with bronchitis. No consolidation. Thank you for allowing us to participate in the care of your patient. Dictated and Authenticated by: Mc Alvarado MD 07/01/2021 12:36 AM Central Time ([place] & [place]) See rad report - Re-Assessments/Exams Free Text/Narrative Re-Assessment/Exam: 06/30/21 20:54 Took over care of patient at 1900 1926 called Cristina, patient put on waiting list, no beds available at this time 1929 Called [facility], only taking STEMI's, strokes, traumas [address] [facility] Second Call called, working on bed placement 2047 Called [facility] Second Call to check in, No beds available [place]. 2049 - Patient started on Levaphed gtt for BP 71/48 after 2L bolus 06/30/21 22:[address] Brand, hospitalist at our facility. He was to the ER to see the patient. Requested labs and diagnostics as follows: EKG, Chest xray, ABG, BMP, Ammonia, Sanchez catheter, Levaquin, Hydrocortisone. Narcan initially ordered as patient BP continues to be low, HR dropped to 50-55, and patient lethargic. Patient more alert and heartrate increased so Narcan was held. <Natan Liao - Last Filed: 07/01/21 08:31> Course - Vital Signs Last Recorded V/S: Last Vital Signs Temp 97.4 F 06/30/21 17:17 Pulse 82 07/01/21 08:00 Resp 24 H 07/01/21 07:22 BP 102/74 07/01/21 08:00 Pulse Ox 95 07/01/21 08:00 - Orders/Labs/Meds Orders: Active Orders 24 hr Category Date Time Status Blood Glucose Check, Bedside [RC] ONETIME Care 06/30/21 17:34 Active Blood Glucose Check, Bedside [RC] ONETIME Care 06/30/21 22:01 Active Sanchez Catheter Insertion [Insert Urinary Catheter] [OM. Care 06/30/21 22:00 Ordered PC] Q24H Peripheral IV Care [RC] . DIRECTED Care 06/30/21 17:35 Active Urinary Catheter Assessment [RC] ASDIRECTED Care 06/30/21 21:55 Active CULTURE BLOOD [BC] Stat Lab 06/30/21 19:00 Received CULTURE BLOOD [BC] Stat Lab 06/30/21 19:05 Results Norepinephrine [Levophed] 4 mg Med 06/30/21 21:00 Active Dextrose 5% in Water 246 ml IV TITRATE Sodium Chloride 0.9% [Saline Flush] Med 06/30/21 17:35 Active 10 ml FLUSH ASDIRECTED PRN Blood Culture x2 Reflex Set [OM.PC] Stat Oth 06/30/21 17:34 Ordered Peripheral IV Insertion Adult [OM.PC] Stat Oth 06/30/21 17:34 Ordered Medication Orders Norepinephrine Bitartrate 4 mg (/ Dextrose/Water) 250 mls @ 7.5 mls/hr IV TITRATE HEMALATHA; Protocol Last Titration: 07/01/21 01:20 Dose: 2 mcg/min, 7.5 mls/hr Documented by: Titration: 06/30/21 21:41 Dose: 5 mcg/min, 18.75 mls/hr Documented by: Admin: 06/30/21 21:06 Dose: 2 mcg/min, 7.5 mls/hr Documented by: ADIN Sodium Chloride (Sodium Chloride 0.9% 10 Ml Syringe) 10 ml FLUSH ASDIRECTED PRN PRN Reason: Keep Vein Open Last Admin: 06/30/21 17:30 Dose: 10 ml Documented by: JACOBY Labs: Laboratory Tests 06/30/21 06/30/21 06/30/21 Range/Units 17:32 17:32 17:32 WBC 8.6 (5.0-10.0) 10^3/uL RBC 5.30 (4.2-5.4) 10^6/uL Hgb 15.3 D (12.0-16.0) g/dL Hct 43.5 (37.0-47.0) % MCV 82.1 (80-100) fL MCH 28.9 (27.0-34.0) pg MCHC 35.2 H (33.0-35.0) g/dL Plt Count 252 D (150-450) 10^3/uL Neut % (Auto) 60.9 (42.2-75.2) % Lymph % (Auto) 21.1 (20.5-50.1) % [place] % (Auto) 13.8 H (2-8) % Eos % (Auto) 4.1 H (1.0-3.0) % Baso % (Auto) 0.1 (0.0-1.0) % ABG pH (7.35-7.45) ABG pCO2 (35-45) mmHg ABG pO2 (70-100) mmHg ABG HCO3 (22-26) mmol/L ABG O2 Saturation (95-100) % ABG Base Excess ((-2)-(+3)) mmol/L O2 Delivery Device Sodium 130 L (136-145) mmol/L Potassium 4.1 (3.5-5.1) mmol/L Chloride 93 L (98-107) mmol/L Carbon Dioxide 23 (21-32) mmol/L Anion Gap 18.1 H (7-13) mEq/L BUN 55 H D (7-18) mg/dL Creatinine 4.53 H D (0.55-1.02) mg/dL Est Cr Clr Drug Dosing TNP Estimated GFR (MDRD) 10 BUN/Creatinine Ratio 12.1 (No establ ref range) Glucose 270 H (70-99) mg/dL POC Glucose (70-99) mg/dL Lactic Acid 2.5 H* (0.4-2.0) mmol/L Calcium 9.1 (8.5-10.1) mg/dL Magnesium 2.0 (1.8-2.4) mg/dL Total Bilirubin 0.9 (0.2-1.0) mg/dL AST 16 (15-37) U/L ALT 28 (14-59) U/L Alkaline Phosphatase 89 (46-116) U/L Ammonia (11-32) umol/L Troponin I High Sens 40 (<=51) pg/mL Total Protein 7.4 (6.4-8.2) g/dL Albumin 3.2 L (3.4-5.0) g/dL Globulin 4.2 Albumin/Globulin Ratio 0.76 Amylase 34 (25-115) U/L Urine Color (YELLOW) Urine Appearance (CLEAR) Urine pH (5.0-9.0) Ur Specific [place] (1.005-1.030) Urine Protein (NEGATIVE) Urine Glucose (UA) (NEGATIVE) Urine Ketones (NEGATIVE) Urine Occult Blood (NEGATIVE) Urine Nitrite (NEGATIVE) Urine Bilirubin (NEGATIVE) Urine Urobilinogen (0.2-1.0) mg/dL Ur Leukocyte Esterase (NEGATIVE) Urine RBC (0-5) /HPF Urine WBC (0-5/HPF) /HPF Ur Epithelial Cells (NOT SEEN) /HPF Urine Bacteria (0-FEW/HPF) /HPF Urine Opiates Screen (NEGATIVE) Ur Oxycodone Screen (NEGATIVE) Urine Methadone Screen (NEGATIVE) Ur Barbiturates Screen (NEGATIVE) U Tricyclic Antidepress (NEGATIVE) Ur Phencyclidine Scrn (NEGATIVE) Ur Amphetamine Screen (NEGATIVE) U Methamphetamines Scrn (NEGATIVE) Urine MDMA Screen (NEGATIVE) U Benzodiazepines Scrn (NEGATIVE) Urine Cocaine Screen (NEGATIVE) U Marijuana (THC) Screen (NEGATIVE) Ethyl Alcohol (0) mg/dL SARS CoV-2 RNA Rapid UNA (NEGATIVE) 06/30/21 06/30/21 06/30/21 Range/Units 17:32 17:40 18:47 WBC (5.0-10.0) 10^3/uL RBC (4.2-5.4) 10^6/uL Hgb (12.0-16.0) g/dL Hct (37.0-47.0) % MCV (80-100) fL MCH (27.0-34.0) pg MCHC (33.0-35.0) g/dL Plt Count (150-450) 10^3/uL Neut % (Auto) (42.2-75.2) % Lymph % (Auto) (20.5-50.1) % [place] % (Auto) (2-8) % Eos % (Auto) (1.0-3.0) % Baso % (Auto) (0.0-1.0) % ABG pH (7.35-7.45) ABG pCO2 (35-45) mmHg ABG pO2 (70-100) mmHg ABG HCO3 (22-26) mmol/L ABG O2 Saturation (95-100) % ABG Base Excess ((-2)-(+3)) mmol/L O2 Delivery Device Sodium (136-145) mmol/L Potassium (3.5-5.1) mmol/L Chloride (98-107) mmol/L Carbon Dioxide (21-32) mmol/L Anion Gap (7-13) mEq/L BUN (7-18) mg/dL Creatinine (0.55-1.02) mg/dL Est Cr Clr Drug Dosing Estimated GFR (MDRD) BUN/Creatinine Ratio (No establ ref range) Glucose (70-99) mg/dL POC Glucose 277 H (70-99) mg/dL Lactic Acid (0.4-2.0) mmol/L Calcium (8.5-10.1) mg/dL Magnesium (1.8-2.4) mg/dL Total Bilirubin (0.2-1.0) mg/dL AST (15-37) U/L ALT (14-59) U/L Alkaline Phosphatase (46-116) U/L Ammonia (11-32) umol/L Troponin I High Sens (<=51) pg/mL Total Protein (6.4-8.2) g/dL Albumin (3.4-5.0) g/dL Globulin Albumin/Globulin Ratio Amylase (25-115) U/L Urine Color (YELLOW) Urine Appearance (CLEAR) Urine pH (5.0-9.0) Ur Specific [place] (1.005-1.030) Urine Protein (NEGATIVE) Urine Glucose (UA) (NEGATIVE) Urine Ketones (NEGATIVE) Urine Occult Blood (NEGATIVE) Urine Nitrite (NEGATIVE) Urine Bilirubin (NEGATIVE) Urine Urobilinogen (0.2-1.0) mg/dL Ur Leukocyte Esterase (NEGATIVE) Urine RBC (0-5) /HPF Urine WBC (0-5/HPF) /HPF Ur Epithelial Cells (NOT SEEN) /HPF Urine Bacteria (0-FEW/HPF) /HPF Urine Opiates Screen (NEGATIVE) Ur Oxycodone Screen (NEGATIVE) Urine Methadone Screen (NEGATIVE) Ur Barbiturates Screen (NEGATIVE) U Tricyclic Antidepress (NEGATIVE) Ur Phencyclidine Scrn (NEGATIVE) Ur Amphetamine Screen (NEGATIVE) U Methamphetamines Scrn (NEGATIVE) Urine MDMA Screen (NEGATIVE) U Benzodiazepines Scrn (NEGATIVE) Urine Cocaine Screen (NEGATIVE) U Marijuana (THC) Screen (NEGATIVE) Ethyl Alcohol < 3 (0) mg/dL SARS CoV-2 RNA Rapid UNA Negative (NEGATIVE) 06/30/21 06/30/21 06/30/21 Range/Units 20:45 22:01 22:01 WBC (5.0-10.0) 10^3/uL RBC (4.2-5.4) 10^6/uL Hgb (12.0-16.0) g/dL Hct (37.0-47.0) % MCV (80-100) fL MCH (27.0-34.0) pg MCHC (33.0-35.0) g/dL Plt Count (150-450) 10^3/uL Neut % (Auto) (42.2-75.2) % Lymph % (Auto) (20.5-50.1) % [place] % (Auto) (2-8) % Eos % (Auto) (1.0-3.0) % Baso % (Auto) (0.0-1.0) % ABG pH (7.35-7.45) ABG pCO2 (35-45) mmHg ABG pO2 (70-100) mmHg ABG HCO3 (22-26) mmol/L ABG O2 Saturation (95-100) % ABG Base Excess ((-2)-(+3)) mmol/L O2 Delivery Device Sodium (136-145) mmol/L Potassium (3.5-5.1) mmol/L Chloride (98-107) mmol/L Carbon Dioxide (21-32) mmol/L Anion Gap (7-13) mEq/L BUN (7-18) mg/dL Creatinine (0.55-1.02) mg/dL Est Cr Clr Drug Dosing Estimated GFR (MDRD) BUN/Creatinine Ratio (No establ ref range) Glucose (70-99) mg/dL POC Glucose (70-99) mg/dL Lactic Acid 1.4 (0.4-2.0) mmol/L Calcium (8.5-10.1) mg/dL Magnesium (1.8-2.4) mg/dL Total Bilirubin (0.2-1.0) mg/dL AST (15-37) U/L ALT (14-59) U/L Alkaline Phosphatase (46-116) U/L Ammonia (11-32) umol/L Troponin I High Sens (<=51) pg/mL Total Protein (6.4-8.2) g/dL Albumin (3.4-5.0) g/dL Globulin Albumin/Globulin Ratio Amylase (25-115) U/L Urine Color Yellow (YELLOW) Urine Appearance Slightly cloudy (CLEAR) Urine pH 5.5 (5.0-9.0) Ur Specific [place] <= 1.005 (1.005-1.030) Urine Protein Negative (NEGATIVE) Urine Glucose (UA) Negative (NEGATIVE) Urine Ketones Negative (NEGATIVE) Urine Occult Blood Trace-intact H (NEGATIVE) Urine Nitrite Negative (NEGATIVE) Urine Bilirubin Negative (NEGATIVE) Urine Urobilinogen 0.2 (0.2-1.0) mg/dL Ur Leukocyte Esterase Negative (NEGATIVE) Urine RBC 0-5 (0-5) /HPF Urine WBC 0-5 (0-5/HPF) /HPF Ur Epithelial Cells Few (NOT SEEN) /HPF Urine Bacteria Few (0-FEW/HPF) /HPF Urine Opiates Screen Negative (NEGATIVE) Ur Oxycodone Screen Negative (NEGATIVE) Urine Methadone Screen Negative (NEGATIVE) Ur Barbiturates Screen Negative (NEGATIVE) U Tricyclic Antidepress Negative (NEGATIVE) Ur Phencyclidine Scrn Negative (NEGATIVE) Ur Amphetamine Screen Negative (NEGATIVE) U Methamphetamines Scrn Negative (NEGATIVE) Urine MDMA Screen Negative (NEGATIVE) U Benzodiazepines Scrn Negative (NEGATIVE) Urine Cocaine Screen Negative (NEGATIVE) U Marijuana (THC) Screen Negative (NEGATIVE) Ethyl Alcohol (0) mg/dL SARS CoV-2 RNA Rapid UNA (NEGATIVE) 06/30/21 06/30/21 06/30/21 Range/Units 22:20 22:40 22:40 WBC (5.0-10.0) 10^3/uL RBC (4.2-5.4) 10^6/uL Hgb (12.0-16.0) g/dL Hct (37.0-47.0) % MCV (80-100) fL MCH (27.0-34.0) pg MCHC (33.0-35.0) g/dL Plt Count (150-450) 10^3/uL Neut % (Auto) (42.2-75.2) % Lymph % (Auto) (20.5-50.1) % [place] % (Auto) (2-8) % Eos % (Auto) (1.0-3.0) % Baso % (Auto) (0.0-1.0) % ABG pH 7.33 L (7.35-7.45) ABG pCO2 31 L (35-45) mmHg ABG pO2 99 (70-100) mmHg ABG HCO3 15.8 L (22-26) mmol/L ABG O2 Saturation 98 (95-100) % ABG Base Excess -9 L ((-2)-(+3)) mmol/L O2 Delivery Device Room air Sodium 132 L (136-145) mmol/L Potassium 4.2 (3.5-5.1) mmol/L Chloride 104 (98-107) mmol/L Carbon Dioxide 15 L (21-32) mmol/L Anion Gap 17.2 H (7-13) mEq/L BUN 50 H (7-18) mg/dL Creatinine 2.91 H D (0.55-1.02) mg/dL Est Cr Clr Drug Dosing 16.26 Estimated GFR (MDRD) 16 BUN/Creatinine Ratio (No establ ref range) Glucose 298 H (70-99) mg/dL POC Glucose (70-99) mg/dL Lactic Acid (0.4-2.0) mmol/L Calcium 8.2 L (8.5-10.1) mg/dL Magnesium (1.8-2.4) mg/dL Total Bilirubin (0.2-1.0) mg/dL AST (15-37) U/L ALT (14-59) U/L Alkaline Phosphatase (46-116) U/L Ammonia 22 (11-32) umol/L Troponin I High Sens (<=51) pg/mL Total Protein (6.4-8.2) g/dL Albumin (3.4-5.0) g/dL Globulin Albumin/Globulin Ratio Amylase (25-115) U/L Urine Color (YELLOW) Urine Appearance (CLEAR) Urine pH (5.0-9.0) Ur Specific [place] (1.005-1.030) Urine Protein (NEGATIVE) Urine Glucose (UA) (NEGATIVE) Urine Ketones (NEGATIVE) Urine Occult Blood (NEGATIVE) Urine Nitrite (NEGATIVE) Urine Bilirubin (NEGATIVE) Urine Urobilinogen (0.2-1.0) mg/dL Ur Leukocyte Esterase (NEGATIVE) Urine RBC (0-5) /HPF Urine WBC (0-5/HPF) /HPF Ur Epithelial Cells (NOT SEEN) /HPF Urine Bacteria (0-FEW/HPF) /HPF Urine Opiates Screen (NEGATIVE) Ur Oxycodone Screen (NEGATIVE) Urine Methadone Screen (NEGATIVE) Ur Barbiturates Screen (NEGATIVE) U Tricyclic Antidepress (NEGATIVE) Ur Phencyclidine Scrn (NEGATIVE) Ur Amphetamine Screen (NEGATIVE) U Methamphetamines Scrn (NEGATIVE) Urine MDMA Screen (NEGATIVE) U Benzodiazepines Scrn (NEGATIVE) Urine Cocaine Screen (NEGATIVE) U Marijuana (THC) Screen (NEGATIVE) Ethyl Alcohol (0) mg/dL SARS CoV-2 RNA Rapid UNA (NEGATIVE) 06/30/21 07/01/21 07/01/21 Range/Units 22:46 06:56 06:56 WBC 5.6 (5.0-10.0) 10^3/uL RBC 4.62 (4.2-5.4) 10^6/uL Hgb 13.3 D (12.0-16.0) g/dL Hct 38.4 (37.0-47.0) % MCV 83.1 (80-100) fL MCH 28.8 (27.0-34.0) pg MCHC 34.6 (33.0-35.0) g/dL Plt Count 202 (150-450) 10^3/uL Neut % (Auto) 91.5 H (42.2-75.2) % Lymph % (Auto) 7.6 L (20.5-50.1) % [place] % (Auto) 0.9 L (2-8) % Eos % (Auto) 0.0 L (1.0-3.0) % Baso % (Auto) 0.0 (0.0-1.0) % ABG pH (7.35-7.45) ABG pCO2 (35-45) mmHg ABG pO2 (70-100) mmHg ABG HCO3 (22-26) mmol/L ABG O2 Saturation (95-100) % ABG Base Excess ((-2)-(+3)) mmol/L O2 Delivery Device Sodium 135 L (136-145) mmol/L Potassium 5.0 (3.5-5.1) mmol/L Chloride 103 (98-107) mmol/L Carbon Dioxide 18 L (21-32) mmol/L Anion Gap 19.0 H (7-13) mEq/L BUN 40 H (7-18) mg/dL Creatinine 2.16 H (0.55-1.02) mg/dL Est Cr Clr Drug Dosing 21.91 Estimated GFR (MDRD) 23 BUN/Creatinine Ratio 18.5 (No establ ref range) Glucose 376 H (70-99) mg/dL POC Glucose 272 H (70-99) mg/dL Lactic Acid (0.4-2.0) mmol/L Calcium 7.9 L (8.5-10.1) mg/dL Magnesium (1.8-2.4) mg/dL Total Bilirubin 0.5 (0.2-1.0) mg/dL AST 13 L (15-37) U/L ALT 21 (14-59) U/L Alkaline Phosphatase 76 (46-116) U/L Ammonia (11-32) umol/L Troponin I High Sens (<=51) pg/mL Total Protein 6.3 L (6.4-8.2) g/dL Albumin 2.7 L (3.4-5.0) g/dL Globulin 3.6 Albumin/Globulin Ratio 0.75 Amylase (25-115) U/L Urine Color (YELLOW) Urine Appearance (CLEAR) Urine pH (5.0-9.0) Ur Specific [place] (1.005-1.030) Urine Protein (NEGATIVE) Urine Glucose (UA) (NEGATIVE) Urine Ketones (NEGATIVE) Urine Occult Blood (NEGATIVE) Urine Nitrite (NEGATIVE) Urine Bilirubin (NEGATIVE) Urine Urobilinogen (0.2-1.0) mg/dL Ur Leukocyte Esterase (NEGATIVE) Urine RBC (0-5) /HPF Urine WBC (0-5/HPF) /HPF Ur Epithelial Cells (NOT SEEN) /HPF Urine Bacteria (0-FEW/HPF) /HPF Urine Opiates Screen (NEGATIVE) Ur Oxycodone Screen (NEGATIVE) Urine Methadone Screen (NEGATIVE) Ur Barbiturates Screen (NEGATIVE) U Tricyclic Antidepress (NEGATIVE) Ur Phencyclidine Scrn (NEGATIVE) Ur Amphetamine Screen (NEGATIVE) U Methamphetamines Scrn (NEGATIVE) Urine MDMA Screen (NEGATIVE) U Benzodiazepines Scrn (NEGATIVE) Urine Cocaine Screen (NEGATIVE) U Marijuana (THC) Screen (NEGATIVE) Ethyl Alcohol (0) mg/dL SARS CoV-2 RNA Rapid UNA (NEGATIVE) Meds: Medications Generic Name Dose Route Start Last Admin Trade Name Freq PRN Reason Stop Dose Admin Norepinephrine Bitartrate 4 mg 250 mls @ 7.5 mls/hr 06/30/21 21:00 07/01/21 01:20 / Dextrose/Water IV 2 mcg/min TITRATE HEMALATHA 7.5 mls/hr Titration Protocol 2 MCG/MIN Sodium Chloride 10 ml 06/30/21 17:35 06/30/21 17:30 Sodium Chloride 0.9% 10 Ml Syringe FLUSH 10 ml ASDIRECTED PRN Administration Keep Vein Open Discontinued Medications Generic Name Dose Route Start Last Admin Trade Name Freq PRN Reason Stop Dose Admin Al Hydroxide/Mg Hydroxide 30 ml 07/01/21 05:43 07/01/21 05:50 Gi Cocktail Oral Solution 30 Ml PO 07/01/21 05:44 30 ml ONETIME ONE Administration Calcium Carbonate/Glycine 1,000 mg 07/01/21 02:39 07/01/21 02:49 Calcium Carbonate 500 Mg Tab.Chew PO 07/01/21 02:40 1,000 mg ONETIME ONE Administration Dexamethasone 8 mg 06/30/21 17:33 06/30/21 17:43 Dexamethasone 4 Mg/Ml Sdv IVPUSH 06/30/21 17:34 8 mg ONETIME ONE Administration Hydrocortisone Sodium Succinate 100 mg 06/30/21 22:58 06/30/21 23:21 Hydrocortisone Sodium Succinate 100 Mg/2 Ml Sdv IVPUSH 06/30/21 22:59 100 mg ONETIME ONE Administration Sodium Chloride 1,000 mls @ 999 mls/hr 06/30/21 17:34 06/30/21 23:25 Normal Saline IV 06/30/21 18:34 Infused .BOLUS ONE Infusion Sodium Chloride 1,000 mls @ 999 mls/hr 06/30/21 18:10 06/30/21 23:26 Normal Saline IV 06/30/21 19:10 Infused .BOLUS ONE Infusion Sodium Chloride 1,000 mls @ 999 mls/hr 06/30/21 20:58 06/30/21 23:26 Normal Saline IV 06/30/21 21:58 Infused .BOLUS ONE Infusion Levofloxacin/Dextrose 500 mg/ 100 mls @ 100 mls/hr 06/30/21 21:57 06/30/21 22:11 Premix IV 06/30/21 22:56 100 mls/hr ONETIME ONE Administration Sodium Chloride 1,000 mls @ 999 mls/hr 06/30/21 22:08 06/30/21 23:26 Normal Saline IV 06/30/21 23:08 Infused .BOLUS ONE Infusion Sodium Chloride 1,000 mls @ 150 mls/hr 06/30/21 23:16 06/30/21 23:21 Normal Saline IV 07/01/21 05:55 150 mls/hr CONTINUOUS ONE Administration Naloxone HCl 2 mg 06/30/21 21:54 Naloxone 2 Mg/2 Ml Syringe IVPUSH 06/30/21 21:55 ONETIME ONE Ondansetron HCl 4 mg 06/30/21 17:34 06/30/21 17:49 Ondansetron 4 Mg/2 Ml Sdv IV 06/30/21 17:35 4 mg ONETIME ONE Administration - Radiology Interpretation Free Text/Narrative:: Assumed care from Neetu Fields Training Representative at shift change. THe pt is awka and doing well this morning. She ate breafast and has ambulated without difficulty; however, the pts blood pressure does drop from 103 systolic to 80/54 when taken manually. Again the pt does not have symptoms at this time but i am concerned for her safety given this drastic change. Concurrently the pts labs have improved with the creatinine down to 2.19; however it has not returned to base line as of yet. I consulted with Dr. Brand who aggress the pt should be admitted for further care. I Sunday accepted the pt for inpatient treatment. Departure - Departure Time of Disposition: 08:25 (Dr. Brand) Condition: Fair - Discharge Information *PRESCRIPTION DRUG MONITORING PROGRAM REVIEWED*: Not Applicable *COPY OF PRESCRIPTION DRUG MONITORING REPORT IN PATIENT MARY: Not Applicable Sepsis Event Note (ED) - Focused Exam Vital Signs: Vital Signs Pulse Resp BP Pulse Ox 07/01/21 08:00 82 102/74 95 07/01/21 07:22 80 24 H 99/63 96 07/01/21 06:39 78 14 108/58 L 96 06/30/21 22:44 77 20 108/62 97 06/30/21 22:30 86 20 76/61 L 97 06/30/21 21:55 53 L 20 90/41 L 100 I have read and agree with the documentation that has been completed regarding this visit. By signing this record, I attest that the documentation was complet ed in my physical presence and is an accurate record of the encounter.
[2021-06-30] MEDS ORDERED: Norepinephrine 4 MG in Dextrose 5% in Water 246 ML IV SCH ×2 (21:00)
[2021-06-30] MEDS ORDERED: Naloxone 2 MG/2 ML Syringe IVPUSH ONE (21:54)
[2021-06-30] MEDS ORDERED: Levofloxacin/Dextrose 5%-Water 500 MG in Premix Bag 1 BAG IV ONE (21:57)
--- NOTE | 2021-06-30 22:35 | PCM.CODE ---
H&P History of Present Illness - General Date of Service: 06/30/21 Admit Problem/Dx: I was called on consultationto ER . Pt is 60 y/o women with h/o Arvind disease, came to ER because of vomiting and diarrhea rose 2-3 days. Pt was founf hypotensive in ER BP in ~ 70 improved to 90 after 2 L of IVF. She already received Dexamethasone and started on Levophed. on my arrival, pt was lethargic but arousable she was not available to to provide history. She is maintaining her airway. on monitor her heart rate in 49-55 while on Levophed. occasional PVC. pulse OX 95% chest: CTA, Heart RRR,. Abd: soft: NT, ND, ext> no edema. She is moving all of her ext. Source of Information: Patient, Other (ER provider) History Limitations: Reports: No Limitations - History of Present Illness Improves with: Reports: None Worsens with: Reports: None Associated Symptoms: Reports: No Other Symptoms - Related Data Allergies/Adverse Reactions: Allergies Allergy/AdvReac Type Severity Reaction Status Date / Time No Known Allergies Allergy Verified 06/30/21 18:07 Home Medications: Home Meds Fludrocortisone [Florinef] 0.1 mg PO WITHBREAKFAST 09/15/15 [History] Hydrocortisone 10 mg PO .2PM 09/15/15 [History] Lisinopril 2.5 mg PO DAILY 11/21/16 [History] Aspirin [Aspirin EC] 81 mg PO DAILY 06/30/21 [History] Cholecalciferol (Vitamin D3) [Vitamin D3] 75 mcg PO DAILY 06/30/21 [History] Clopidogrel Bisulfate [Plavix] 75 mg PO DAILY 06/30/21 [History] Hydrocortisone 20 mg PO .MORNING 06/30/21 [History] atorvaSTATin Calcium [Atorvastatin Calcium] 40 mg PO .EVENING 06/30/21 [History] metFORMIN [Glucophage] 500 mg PO DAILY 06/30/21 [History] Exam - Exam Exam: See Below - Vital Signs Vital Signs: Last Vital Signs Temp 97.4 F 06/30/21 17:17 Pulse 83 06/30/21 17:17 Resp 18 06/30/21 17:17 BP 64/33 L 06/30/21 17:17 Pulse Ox 96 06/30/21 17:17 Weight: 149 lb - Exam Quality Assessment: No: Supplemental Oxygen General: Alert, Lethargic HEENT: EACs Clear Lungs: Clear to Auscultation Cardiovascular: Regular Rate, Other GI/Abdominal Exam: Soft, Non-Tender Extremities: Normal Inspection Skin: Warm Neurological: Cranial Nerves Intact Neuro Extensive - Mental Status: Alert, Other (was drawzy then her mental status improved and she was carriyng full conversation with her son) Course - Vital Signs Text/Narrative:: Shock, hypovolemic, along with adrenal insufficiency crisis, r/o septic shock, r/o drug overdose. LIBORIO ECG, Labs and CXR reviewed. BP is current;ly mainlining after 3 L of IVF. to ad 4 L COntinue with Levophed to maintaining SBP ~ `100,.Sanchez ECG. First Trop : Neg Ethoh and drug screen COVID swab ABG ammonia level IV antibiotics Agree with transfer to ICU bed Last Recorded V/S: Last Vital Signs Temp 97.4 F 06/30/21 17:17 Pulse 83 06/30/21 17:17 Resp 18 06/30/21 17:17 BP 64/33 L 06/30/21 17:17 Pulse Ox 96 06/30/21 17:17 - Orders/Labs/Meds Orders: Active Orders 24 hr Category Date Time Status Blood Glucose Check, Bedside [RC] ONETIME Care 06/30/21 17:34 Active Blood Glucose Check, Bedside [RC] ONETIME Care 06/30/21 22:01 Active Sanchez Catheter Insertion [Insert Urinary Catheter] [OM. Care 06/30/21 22:00 Ordered PC] Q24H Peripheral IV Care [RC] . DIRECTED Care 06/30/21 17:35 Active Urinary Catheter Assessment [RC] ASDIRECTED Care 06/30/21 21:55 Active AMMONIA VENOUS [CHEM] Stat Lab 06/30/21 21:55 Ordered BASIC METABOLIC PANEL,BMP [CHEM] Stat Lab 06/30/21 22:27 Ordered BLOOD GAS ARTERIAL [BG] Stat Lab 06/30/21 21:54 Ordered CULTURE BLOOD [BC] Stat Lab 06/30/21 17:35 Ordered CULTURE BLOOD [BC] Stat Lab 06/30/21 17:35 Ordered DRUG SCREEN URINE BIORAD [URCHEM] Stat Lab 06/30/21 22:01 Ordered ETOH [ETHANOL BLOOD MEDICAL] [CHEM] Stat Lab 06/30/21 21:55 Ordered UA RFX MADYSON AND CULT IF INDIC [URIN] Stat Lab 06/30/21 22:01 Ordered Levofloxacin/Dextrose 5%-Water [Levaquin in D5W 500 MG/ Med 06/30/21 21:57 Active 100 ML] 500 mg Premix Bag 1 bag IV ONETIME Norepinephrine [Levophed] 4 mg Med 06/30/21 21:00 Active Dextrose 5% in Water 246 ml IV TITRATE Sodium Chloride 0.9% [Normal Saline] 1,000 ml Med 06/30/21 22:08 Active IV .BOLUS Sodium Chloride 0.9% [Saline Flush] Med 06/30/21 17:35 Active 10 ml FLUSH ASDIRECTED PRN Blood Culture x2 Reflex Set [OM.PC] Stat Oth 06/30/21 17:34 Ordered Peripheral IV Insertion Adult [OM.PC] Stat Oth 06/30/21 17:34 Ordered Medication Orders Norepinephrine Bitartrate 4 mg (/ Dextrose/Water) 250 mls @ 7.5 mls/hr IV TITRATE HEMALATHA; Protocol Last Titration: 06/30/21 21:41 Dose: 5 mcg/min, 18.75 mls/hr Documented by: Admin: 06/30/21 21:06 Dose: 2 mcg/min, 7.5 mls/hr Documented by: ADIN Levofloxacin/Dextrose 500 mg/ (Premix) 100 mls @ 100 mls/hr IV ONETIME ONE Stop: 06/30/21 22:56 Last Admin: 06/30/21 22:11 Dose: 100 mls/hr Documented by: ADIN Sodium Chloride (Normal Saline) 1,000 mls @ 999 mls/hr IV .BOLUS ONE Stop: 06/30/21 23:08 Last Admin: 06/30/21 22:10 Dose: 999 mls/hr Documented by: ADIN Sodium Chloride (Sodium Chloride 0.9% 10 Ml Syringe) 10 ml FLUSH ASDIRECTED PRN PRN Reason: Keep Vein Open Last Admin: 06/30/21 17:30 Dose: 10 ml Documented by: JACOBY Labs: Laboratory Tests 06/30/21 06/30/21 06/30/21 Range/Units 17:32 17:32 17:32 WBC 8.6 (5.0-10.0) 10^3/uL RBC 5.30 (4.2-5.4) 10^6/uL Hgb 15.3 D (12.0-16.0) g/dL Hct 43.5 (37.0-47.0) % MCV 82.1 (80-100) fL MCH 28.9 (27.0-34.0) pg MCHC 35.2 H (33.0-35.0) g/dL Plt Count 252 D (150-450) 10^3/uL Neut % (Auto) 60.9 (42.2-75.2) % Lymph % (Auto) 21.1 (20.5-50.1) % [place] % (Auto) 13.8 H (2-8) % Eos % (Auto) 4.1 H (1.0-3.0) % Baso % (Auto) 0.1 (0.0-1.0) % Sodium 130 L (136-145) mmol/L Potassium 4.1 (3.5-5.1) mmol/L Chloride 93 L (98-107) mmol/L Carbon Dioxide 23 (21-32) mmol/L Anion Gap 18.1 H (7-13) mEq/L BUN 55 H D (7-18) mg/dL Creatinine 4.53 H D (0.55-1.02) mg/dL Est Cr Clr Drug Dosing TNP Estimated GFR (MDRD) 10 BUN/Creatinine Ratio 12.1 (No establ ref range) Glucose 270 H (70-99) mg/dL POC Glucose (70-99) mg/dL Lactic Acid 2.5 H* (0.4-2.0) mmol/L Calcium 9.1 (8.5-10.1) mg/dL Magnesium 2.0 (1.8-2.4) mg/dL Total Bilirubin 0.9 (0.2-1.0) mg/dL AST 16 (15-37) U/L ALT 28 (14-59) U/L Alkaline Phosphatase 89 (46-116) U/L Troponin I High Sens 40 (<=51) pg/mL Total Protein 7.4 (6.4-8.2) g/dL Albumin 3.2 L (3.4-5.0) g/dL Globulin 4.2 Albumin/Globulin Ratio 0.76 Amylase 34 (25-115) U/L SARS CoV-2 RNA Rapid UNA (NEGATIVE) 06/30/21 06/30/21 06/30/21 Range/Units 17:40 18:47 20:45 WBC (5.0-10.0) 10^3/uL RBC (4.2-5.4) 10^6/uL Hgb (12.0-16.0) g/dL Hct (37.0-47.0) % MCV (80-100) fL MCH (27.0-34.0) pg MCHC (33.0-35.0) g/dL Plt Count (150-450) 10^3/uL Neut % (Auto) (42.2-75.2) % Lymph % (Auto) (20.5-50.1) % [place] % (Auto) (2-8) % Eos % (Auto) (1.0-3.0) % Baso % (Auto) (0.0-1.0) % Sodium (136-145) mmol/L Potassium (3.5-5.1) mmol/L Chloride (98-107) mmol/L Carbon Dioxide (21-32) mmol/L Anion Gap (7-13) mEq/L BUN (7-18) mg/dL Creatinine (0.55-1.02) mg/dL Est Cr Clr Drug Dosing Estimated GFR (MDRD) BUN/Creatinine Ratio (No establ ref range) Glucose (70-99) mg/dL POC Glucose 277 H (70-99) mg/dL Lactic Acid 1.4 (0.4-2.0) mmol/L Calcium (8.5-10.1) mg/dL Magnesium (1.8-2.4) mg/dL Total Bilirubin (0.2-1.0) mg/dL AST (15-37) U/L ALT (14-59) U/L Alkaline Phosphatase (46-116) U/L Troponin I High Sens (<=51) pg/mL Total Protein (6.4-8.2) g/dL Albumin (3.4-5.0) g/dL Globulin Albumin/Globulin Ratio Amylase (25-115) U/L SARS CoV-2 RNA Rapid UNA Negative (NEGATIVE) Meds: Medications Generic Name Dose Route Start Last Admin Trade Name Freq PRN Reason Stop Dose Admin Norepinephrine Bitartrate 4 mg 250 mls @ 7.5 mls/hr 06/30/21 21:00 06/30/21 21:41 / Dextrose/Water IV 5 mcg/min TITRATE HEMALATHA 18.75 mls/hr Titration Protocol 2 MCG/MIN Levofloxacin/Dextrose 500 mg/ 100 mls @ 100 mls/hr 06/30/21 21:57 06/30/21 22:11 Premix IV 06/30/21 22:56 100 mls/hr ONETIME ONE Administration Sodium Chloride 1,000 mls @ 999 mls/hr 06/30/21 22:08 06/30/21 22:10 Normal Saline IV 06/30/21 23:08 999 mls/hr .BOLUS ONE Administration Sodium Chloride 10 ml 06/30/21 17:35 06/30/21 17:30 Sodium Chloride 0.9% 10 Ml Syringe FLUSH 10 ml ASDIRECTED PRN Administration Keep Vein Open Discontinued Medications Generic Name Dose Route Start Last Admin Trade Name Freq PRN Reason Stop Dose Admin Dexamethasone 8 mg 06/30/21 17:33 06/30/21 17:43 Dexamethasone 4 Mg/Ml Sdv IVPUSH 06/30/21 17:34 8 mg ONETIME ONE Administration Sodium Chloride 1,000 mls @ 999 mls/hr 06/30/21 17:34 06/30/21 17:40 Normal Saline IV 06/30/21 18:34 999 mls/hr .BOLUS ONE Administration Sodium Chloride 1,000 mls @ 999 mls/hr 06/30/21 18:10 06/30/21 18:36 Normal Saline IV 06/30/21 19:10 999 mls/hr .BOLUS ONE Administration Sodium Chloride 1,000 mls @ 999 mls/hr 06/30/21 20:58 06/30/21 21:06 Normal Saline IV 06/30/21 21:58 999 mls/hr .BOLUS ONE Administration Naloxone HCl 2 mg 06/30/21 21:54 Naloxone 2 Mg/2 Ml Syringe IVPUSH 06/30/21 21:55 ONETIME ONE Ondansetron HCl 4 mg 06/30/21 17:34 06/30/21 17:49 Ondansetron 4 Mg/2 Ml Sdv IV 06/30/21 17:35 4 mg ONETIME ONE Administration
[2021-06-30 22:40] LABS: BASE EXCESS ARTERIAL -9 mmol/L ((-2)-(+3)); BICARBONATE,ARTERIAL 15.8 mmol/L (22-26); O2 DELIVERY DEVICE ROOM AIR; O2 SATURATION ARTERIAL 98 % (95-100); PCO2 ARTERIAL 31 mmHg (35-45); PO2 ARTERIAL 99 mmHg (70-100)
[2021-06-30] MEDS ORDERED: Hydrocortisone Sodium Succinate 100 MG/2 ML SDV IVPUSH ONE (22:58)
[2021-06-30 23:23] LABS: ANION GAP 17.2 mEq/L (7-13)
[2021-06-30 23:23] LABS: AMPHETAMINES,URINE NEGATIVE (NEGATIVE); BARBITURATES,URINE NEGATIVE (NEGATIVE); BENZODIAZEPINE,URINE NEGATIVE (NEGATIVE); MDMA (ECSTASY), URINE NEGATIVE (NEGATIVE); METHADONE,URINE NEGATIVE (NEGATIVE); METHAMPHETAMINES,URINE NEGATIVE (NEGATIVE); OPIATES,URINE NEGATIVE (NEGATIVE); OXYCODONE,URINE NEGATIVE (NEGATIVE); PHENCYCLIDINE,URINE NEGATIVE (NEGATIVE); TCA,URINE NEGATIVE (NEGATIVE)
--- NOTE | 2021-07-01 00:36 | CR ---
PROCEDURE INFORMATION: Exam: XR Chest Exam date and time: 06/30/2021 11:16 PM Age: 60 years old Clinical indication: Pain; Left-sided; Additional info: Chest pain TECHNIQUE: Imaging protocol: XR of the chest. Views: 1 view. COMPARISON: CR Chest 1V Frontal 09/24/2020 3:03 PM FINDINGS: Lungs: Mildly prominent interstitial markings and mild peribronchial cuffing in both lungs. No focal airspace opacities. Pleural spaces: Unremarkable. No pleural effusion. No pneumothorax. Heart/Mediastinum: Unremarkable. No cardiomegaly. Diaphragm: Mildly elevated right hemidiaphragm. Bones/joints: Unremarkable. IMPRESSION: Mildly prominent interstitial markings and mild peribronchial cuffing in both lungs which are nonspecific findings but may be seen with bronchitis. No consolidation.
[2021-07-01] MEDS ORDERED: Calcium Carbonate 500 MG Tab.Chew PO ONE (02:39)
[2021-07-01] MEDS ORDERED: GI Cocktail Oral Solution 30 ML PO ONE (05:43)
[2021-07-01] MEDS ORDERED: Sodium Chloride 0.9% 10 ML Syringe FLUSH PRN (09:47)
[2021-07-01] MEDS ORDERED: Acetaminophen 325 MG Tab PO PRN (09:58)
--- NOTE | 2021-07-01 10:09 | PCM.HP ---
H&P History of Present Illness - General Date of Service: 07/01/21 Admit Problem/Dx: I was called on consultationto ER . Pt is 60 y/o women with h/o Arvind disease, came to ER because of vomiting and diarrhea rose 2-3 days. Pt was founf hypotensive in ER BP in ~ 70 improved to 90 after 2 L of IVF. She already received Dexamethasone and started on Levophed. on my arrival, pt was lethargic but arousable she was not available to to provide history. She is maintaining her airway. on monitor her heart rate in 49-55 while on Levophed. occasional PVC. pulse OX 95% chest: CTA, Heart RRR,. Abd: soft: NT, ND, ext> no edema. She is moving all of her ext. 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 Pt was found hypotensive in ER BP in ~ 70 improved to 90 after 2 L of IVF. She already received Dexamethasone and started on Levophed. I was called on consultation to ER last night. on my arrival, pt was lethargic but arousable she was not available to to provide history. She is maintaining her airway. on monitor her heart rate in 49-55 while on Levophed. occasional PVC. pulse OX 95% Over night she received 5 L of IVF along with hydrocortisone stress dose. Her BP improved and she was weaned off Levophed. However, pt remained orthostatic and she was admitted for further evaluation. Today, she is feeling better and she was able to tolerate breakfast. No more diarrhea. She was admitted for further management. Onset of Symptoms: Reports: Other (2- 3 days) Other HPI/Comments: She reports having similar episodes when she is not able to take her steroid for [place] disease. - Related Data Allergies/Adverse Reactions: Allergies Allergy/AdvReac Type Severity Reaction Status Date / Time No Known Allergies Allergy Verified 07/01/21 09:30 Home Medications: Home Meds Fludrocortisone [Florinef] 0.1 mg PO WITHBREAKFAST 09/15/15 [History] Hydrocortisone 10 mg PO .2PM 09/15/15 [History] Lisinopril 2.5 mg PO DAILY 11/21/16 [History] Aspirin [Aspirin EC] 81 mg PO DAILY 06/30/21 [History] Cholecalciferol (Vitamin D3) [Vitamin D3] 75 mcg PO DAILY 06/30/21 [History] Clopidogrel Bisulfate [Plavix] 75 mg PO DAILY 06/30/21 [History] Hydrocortisone 20 mg PO .MORNING 06/30/21 [History] atorvaSTATin Calcium [Atorvastatin Calcium] 40 mg PO .EVENING 06/30/21 [History] metFORMIN [Glucophage] 500 mg PO DAILY 06/30/21 [History] Alendronate Sodium [Fosamax] 70 mg PO .TUES 07/01/21 [History] Past Medical History HEENT History: Reports: Impaired Vision Cardiovascular History: Reports: [place], Other (See Below) Other Cardiovascular History: "weak heart" Respiratory History: Reports: None Genitourinary History: Reports: UTI, Recurrent [employer] History: Reports: Musculoskeletal History: Reports: Arthritis Neurological History: Reports: None Psychiatric History: Reports: None Endocrine/Metabolic History: Reports: [place]'s Disease, Diabetes, Type II - Infectious Disease History Infectious Disease History: Reports: Novel Coronavirus - Past Surgical History Cardiovascular Surgical History: Reports: Coronary Artery Stent GI Surgical History: Reports: Appendectomy Social & Family History - Family History Family Medical History: No Pertinent Family History Cardiac: Reports: CAD, Hypertension Endocrine/Metabolic: Reports: Diabetes, type II - Tobacco Use Tobacco Use Status *Q: Never Tobacco User Second Hand Smoke Exposure: No - Caffeine Use Caffeine Use: Reports: None - Recreational Drug Use Recreational Drug Use: No - Living Situation & Occupation Living situation: Reports: , with Family Occupation: Employed H&P Review of Systems - Review of Systems: Review Of Systems: Comprehensive ROS is negative, except as noted in HPI. General: Denies: Fever, Chills Pulmonary: Denies: Shortness of Breath Cardiovascular: Denies: Chest Pain Gastrointestinal: Reports: Diarrhea (resolved), Nausea (resolved today). Denies: Abdominal Pain Psychiatric: Reports: No Symptoms. Denies: Confusion Neurological: Reports: No Symptoms Exam - Exam Exam: See Below - Vital Signs Vital Signs: Last Vital Signs Temp 98.1 F 07/01/21 09:28 Pulse 73 07/01/21 09:28 Resp 18 07/01/21 09:28 BP 101/70 07/01/21 09:28 Pulse Ox 98 07/01/21 09:28 Weight: 164 lb 3.2 oz - Exam Quality Assessment: No: Supplemental Oxygen General: Alert, Oriented HEENT: Conjunctiva Clear Neck: Supple Lungs: Clear to Auscultation Cardiovascular: Regular Rate, Regular Rhythm GI/Abdominal Exam: Normal Bowel Sounds, Soft, Non-Tender Back Exam: Normal Inspection Extremities: Normal Inspection, No Pedal Edema Skin: Warm, Dry Neurological: Cranial Nerves Intact Neuro Extensive - Mental Status: Alert, Oriented x3 Neuro Extensive - Motor, Sensory, Reflexes: CN II-XII Intact, Normal Gait Psychiatric: Alert, Normal Affect - Patient Data Lab Results Last 24 hrs: Laboratory Results - last 24 hr 06/30/21 06/30/21 06/30/21 Range/Units 17:32 17:32 17:32 WBC 8.6 (5.0-10.0) 10^3/uL RBC 5.30 (4.2-5.4) 10^6/uL Hgb 15.3 D (12.0-16.0) g/dL Hct 43.5 (37.0-47.0) % MCV 82.1 (80-100) fL MCH 28.9 (27.0-34.0) pg MCHC 35.2 H (33.0-35.0) g/dL Plt Count 252 D (150-450) 10^3/uL Neut % (Auto) 60.9 (42.2-75.2) % Lymph % (Auto) 21.1 (20.5-50.1) % Treg[place] % (Auto) 13.8 H (2-8) % Eos % (Auto) 4.1 H (1.0-3.0) % Baso % (Auto) 0.1 (0.0-1.0) % ABG pH (7.35-7.45) ABG pCO2 (35-45) mmHg ABG pO2 (70-100) mmHg ABG HCO3 (22-26) mmol/L ABG O2 Saturation (95-100) % ABG Base Excess ((-2)-(+3)) mmol/L O2 Delivery Device Sodium 130 L (136-145) mmol/L Potassium 4.1 (3.5-5.1) mmol/L Chloride 93 L (98-107) mmol/L Carbon Dioxide 23 (21-32) mmol/L Anion Gap 18.1 H (7-13) mEq/L BUN 55 H D (7-18) mg/dL Creatinine 4.53 H D (0.55-1.02) mg/dL Est Cr Clr Drug Dosing TNP Estimated GFR (MDRD) 10 BUN/Creatinine Ratio 12.1 (No establ ref range) Glucose 270 H (70-99) mg/dL POC Glucose (70-99) mg/dL Lactic Acid 2.5 H* (0.4-2.0) mmol/L Calcium 9.1 (8.5-10.1) mg/dL Magnesium 2.0 (1.8-2.4) mg/dL Total Bilirubin 0.9 (0.2-1.0) mg/dL AST 16 (15-37) U/L ALT 28 (14-59) U/L Alkaline Phosphatase 89 (46-116) U/L Ammonia (11-32) umol/L Troponin I High Sens 40 (<=51) pg/mL Total Protein 7.4 (6.4-8.2) g/dL Albumin 3.2 L (3.4-5.0) g/dL Globulin 4.2 Albumin/Globulin Ratio 0.76 Amylase 34 (25-115) U/L Urine Color (YELLOW) Urine Appearance (CLEAR) Urine pH (5.0-9.0) Ur Specific Dahlgren (1.005-1.030) Urine Protein (NEGATIVE) Urine Glucose (UA) (NEGATIVE) Urine Ketones (NEGATIVE) Urine Occult Blood (NEGATIVE) Urine Nitrite (NEGATIVE) Urine Bilirubin (NEGATIVE) Urine Urobilinogen (0.2-1.0) mg/dL Ur Leukocyte Esterase (NEGATIVE) Urine RBC (0-5) /HPF Urine WBC (0-5/HPF) /HPF Ur Epithelial Cells (NOT SEEN) /HPF Urine Bacteria (0-FEW/HPF) /HPF Urine Opiates Screen (NEGATIVE) Ur Oxycodone Screen (NEGATIVE) Urine Methadone Screen (NEGATIVE) Ur Barbiturates Screen (NEGATIVE) U Tricyclic Antidepress (NEGATIVE) Ur Phencyclidine Scrn (NEGATIVE) Ur Amphetamine Screen (NEGATIVE) U Methamphetamines Scrn (NEGATIVE) Urine MDMA Screen (NEGATIVE) U Benzodiazepines Scrn (NEGATIVE) Urine Cocaine Screen (NEGATIVE) U Marijuana (THC) Screen (NEGATIVE) Ethyl Alcohol (0) mg/dL SARS CoV-2 RNA Rapid UNA (NEGATIVE) 06/30/21 06/30/21 06/30/21 Range/Units 17:32 17:40 18:47 WBC (5.0-10.0) 10^3/uL RBC (4.2-5.4) 10^6/uL Hgb (12.0-16.0) g/dL Hct (37.0-47.0) % MCV (80-100) fL MCH (27.0-34.0) pg MCHC (33.0-35.0) g/dL Plt Count (150-450) 10^3/uL Neut % (Auto) (42.2-75.2) % Lymph % (Auto) (20.5-50.1) % Trego % (Auto) (2-8) % Eos % (Auto) (1.0-3.0) % Baso % (Auto) (0.0-1.0) % ABG pH (7.35-7.45) ABG pCO2 (35-45) mmHg ABG pO2 (70-100) mmHg ABG HCO3 (22-26) mmol/L ABG O2 Saturation (95-100) % ABG Base Excess ((-2)-(+3)) mmol/L O2 Delivery Device Sodium (136-145) mmol/L Potassium (3.5-5.1) mmol/L Chloride (98-107) mmol/L Carbon Dioxide (21-32) mmol/L Anion Gap (7-13) mEq/L BUN (7-18) mg/dL Creatinine (0.55-1.02) mg/dL Est Cr Clr Drug Dosing Estimated GFR (MDRD) BUN/Creatinine Ratio (No establ ref range) Glucose (70-99) mg/dL POC Glucose 277 H (70-99) mg/dL Lactic Acid (0.4-2.0) mmol/L Calcium (8.5-10.1) mg/dL Magnesium (1.8-2.4) mg/dL Total Bilirubin (0.2-1.0) mg/dL AST (15-37) U/L ALT (14-59) U/L Alkaline Phosphatase (46-116) U/L Ammonia (11-32) umol/L Troponin I High Sens (<=51) pg/mL Total Protein (6.4-8.2) g/dL Albumin (3.4-5.0) g/dL Globulin Albumin/Globulin Ratio Amylase (25-115) U/L Urine Color (YELLOW) Urine Appearance (CLEAR) Urine pH (5.0-9.0) Ur Specific Dahlgren (1.005-1.030) Urine Protein (NEGATIVE) Urine Glucose (UA) (NEGATIVE) Urine Ketones (NEGATIVE) Urine Occult Blood (NEGATIVE) Urine Nitrite (NEGATIVE) Urine Bilirubin (NEGATIVE) Urine Urobilinogen (0.2-1.0) mg/dL Ur Leukocyte Esterase (NEGATIVE) Urine RBC (0-5) /HPF Urine WBC (0-5/HPF) /HPF Ur Epithelial Cells (NOT SEEN) /HPF Urine Bacteria (0-FEW/HPF) /HPF Urine Opiates Screen (NEGATIVE) Ur Oxycodone Screen (NEGATIVE) Urine Methadone Screen (NEGATIVE) Ur Barbiturates Screen (NEGATIVE) U Tricyclic Antidepress (NEGATIVE) Ur Phencyclidine Scrn (NEGATIVE) Ur Amphetamine Screen (NEGATIVE) U Methamphetamines Scrn (NEGATIVE) Urine MDMA Screen (NEGATIVE) U Benzodiazepines Scrn (NEGATIVE) Urine Cocaine Screen (NEGATIVE) U Marijuana (THC) Screen (NEGATIVE) Ethyl Alcohol < 3 (0) mg/dL SARS CoV-2 RNA Rapid UNA Negative (NEGATIVE) 06/30/21 06/30/21 06/30/21 Range/Units 20:45 22:01 22:01 WBC (5.0-10.0) 10^3/uL RBC (4.2-5.4) 10^6/uL Hgb (12.0-16.0) g/dL Hct (37.0-47.0) % MCV (80-100) fL MCH (27.0-34.0) pg MCHC (33.0-35.0) g/dL Plt Count (150-450) 10^3/uL Neut % (Auto) (42.2-75.2) % Lymph % (Auto) (20.5-50.1) % Treg[place] % (Auto) (2-8) % Eos % (Auto) (1.0-3.0) % Baso % (Auto) (0.0-1.0) % ABG pH (7.35-7.45) ABG pCO2 (35-45) mmHg ABG pO2 (70-100) mmHg ABG HCO3 (22-26) mmol/L ABG O2 Saturation (95-100) % ABG Base Excess ((-2)-(+3)) mmol/L O2 Delivery Device Sodium (136-145) mmol/L Potassium (3.5-5.1) mmol/L Chloride (98-107) mmol/L Carbon Dioxide (21-32) mmol/L Anion Gap (7-13) mEq/L BUN (7-18) mg/dL Creatinine (0.55-1.02) mg/dL Est Cr Clr Drug Dosing Estimated GFR (MDRD) BUN/Creatinine Ratio (No establ ref range) Glucose (70-99) mg/dL POC Glucose (70-99) mg/dL Lactic Acid 1.4 (0.4-2.0) mmol/L Calcium (8.5-10.1) mg/dL Magnesium (1.8-2.4) mg/dL Total Bilirubin (0.2-1.0) mg/dL AST (15-37) U/L ALT (14-59) U/L Alkaline Phosphatase (46-116) U/L Ammonia (11-32) umol/L Troponin I High Sens (<=51) pg/mL Total Protein (6.4-8.2) g/dL Albumin (3.4-5.0) g/dL Globulin Albumin/Globulin Ratio Amylase (25-115) U/L Urine Color Yellow (YELLOW) Urine Appearance Slightly cloudy (CLEAR) Urine pH 5.5 (5.0-9.0) Ur Specific Dahlgren <= 1.005 (1.005-1.030) Urine Protein Negative (NEGATIVE) Urine Glucose (UA) Negative (NEGATIVE) Urine Ketones Negative (NEGATIVE) Urine Occult Blood Trace-intact H (NEGATIVE) Urine Nitrite Negative (NEGATIVE) Urine Bilirubin Negative (NEGATIVE) Urine Urobilinogen 0.2 (0.2-1.0) mg/dL Ur Leukocyte Esterase Negative (NEGATIVE) Urine RBC 0-5 (0-5) /HPF Urine WBC 0-5 (0-5/HPF) /HPF Ur Epithelial Cells Few (NOT SEEN) /HPF Urine Bacteria Few (0-FEW/HPF) /HPF Urine Opiates Screen Negative (NEGATIVE) Ur Oxycodone Screen Negative (NEGATIVE) Urine Methadone Screen Negative (NEGATIVE) Ur Barbiturates Screen Negative (NEGATIVE) U Tricyclic Antidepress Negative (NEGATIVE) Ur Phencyclidine Scrn Negative (NEGATIVE) Ur Amphetamine Screen Negative (NEGATIVE) U Methamphetamines Scrn Negative (NEGATIVE) Urine MDMA Screen Negative (NEGATIVE) U Benzodiazepines Scrn Negative (NEGATIVE) Urine Cocaine Screen Negative (NEGATIVE) U Marijuana (THC) Screen Negative (NEGATIVE) Ethyl Alcohol (0) mg/dL SARS CoV-2 RNA Rapid UNA (NEGATIVE) 06/30/21 06/30/21 06/30/21 Range/Units 22:20 22:40 22:40 WBC (5.0-10.0) 10^3/uL RBC (4.2-5.4) 10^6/uL Hgb (12.0-16.0) g/dL Hct (37.0-47.0) % MCV (80-100) fL MCH (27.0-34.0) pg MCHC (33.0-35.0) g/dL Plt Count (150-450) 10^3/uL Neut % (Auto) (42.2-75.2) % Lymph % (Auto) (20.5-50.1) % Treg[place] % (Auto) (2-8) % Eos % (Auto) (1.0-3.0) % Baso % (Auto) (0.0-1.0) % ABG pH 7.33 L (7.35-7.45) ABG pCO2 31 L (35-45) mmHg ABG pO2 99 (70-100) mmHg ABG HCO3 15.8 L (22-26) mmol/L ABG O2 Saturation 98 (95-100) % ABG Base Excess -9 L ((-2)-(+3)) mmol/L O2 Delivery Device Room air Sodium 132 L (136-145) mmol/L Potassium 4.2 (3.5-5.1) mmol/L Chloride 104 (98-107) mmol/L Carbon Dioxide 15 L (21-32) mmol/L Anion Gap 17.2 H (7-13) mEq/L BUN 50 H (7-18) mg/dL Creatinine 2.91 H D (0.55-1.02) mg/dL Est Cr Clr Drug Dosing 16.26 Estimated GFR (MDRD) 16 BUN/Creatinine Ratio (No establ ref range) Glucose 298 H (70-99) mg/dL POC Glucose (70-99) mg/dL Lactic Acid (0.4-2.0) mmol/L Calcium 8.2 L (8.5-10.1) mg/dL Magnesium (1.8-2.4) mg/dL Total Bilirubin (0.2-1.0) mg/dL AST (15-37) U/L ALT (14-59) U/L Alkaline Phosphatase (46-116) U/L Ammonia 22 (11-32) umol/L Troponin I High Sens (<=51) pg/mL Total Protein (6.4-8.2) g/dL Albumin (3.4-5.0) g/dL Globulin Albumin/Globulin Ratio Amylase (25-115) U/L Urine Color (YELLOW) Urine Appearance (CLEAR) Urine pH (5.0-9.0) Ur Specific Dahlgren (1.005-1.030) Urine Protein (NEGATIVE) Urine Glucose (UA) (NEGATIVE) Urine Ketones (NEGATIVE) Urine Occult Blood (NEGATIVE) Urine Nitrite (NEGATIVE) Urine Bilirubin (NEGATIVE) Urine Urobilinogen (0.2-1.0) mg/dL Ur Leukocyte Esterase (NEGATIVE) Urine RBC (0-5) /HPF Urine WBC (0-5/HPF) /HPF Ur Epithelial Cells (NOT SEEN) /HPF Urine Bacteria (0-FEW/HPF) /HPF Urine Opiates Screen (NEGATIVE) Ur Oxycodone Screen (NEGATIVE) Urine Methadone Screen (NEGATIVE) Ur Barbiturates Screen (NEGATIVE) U Tricyclic Antidepress (NEGATIVE) Ur Phencyclidine Scrn (NEGATIVE) Ur Amphetamine Screen (NEGATIVE) U Methamphetamines Scrn (NEGATIVE) Urine MDMA Screen (NEGATIVE) U Benzodiazepines Scrn (NEGATIVE) Urine Cocaine Screen (NEGATIVE) U Marijuana (THC) Screen (NEGATIVE) Ethyl Alcohol (0) mg/dL SARS CoV-2 RNA Rapid UNA (NEGATIVE) 06/30/21 07/01/21 07/01/21 Range/Units 22:46 06:56 06:56 WBC 5.6 (5.0-10.0) 10^3/uL RBC 4.62 (4.2-5.4) 10^6/uL Hgb 13.3 D (12.0-16.0) g/dL Hct 38.4 (37.0-47.0) % MCV 83.1 (80-100) fL MCH 28.8 (27.0-34.0) pg MCHC 34.6 (33.0-35.0) g/dL Plt Count 202 (150-450) 10^3/uL Neut % (Auto) 91.5 H (42.2-75.2) % Lymph % (Auto) 7.6 L (20.5-50.1) % [place] % (Auto) 0.9 L (2-8) % Eos % (Auto) 0.0 L (1.0-3.0) % Baso % (Auto) 0.0 (0.0-1.0) % ABG pH (7.35-7.45) ABG pCO2 (35-45) mmHg ABG pO2 (70-100) mmHg ABG HCO3 (22-26) mmol/L ABG O2 Saturation (95-100) % ABG Base Excess ((-2)-(+3)) mmol/L O2 Delivery Device Sodium 135 L (136-145) mmol/L Potassium 5.0 (3.5-5.1) mmol/L Chloride 103 (98-107) mmol/L Carbon Dioxide 18 L (21-32) mmol/L Anion Gap 19.0 H (7-13) mEq/L BUN 40 H (7-18) mg/dL Creatinine 2.16 H (0.55-1.02) mg/dL Est Cr Clr Drug Dosing 21.91 Estimated GFR (MDRD) 23 BUN/Creatinine Ratio 18.5 (No establ ref range) Glucose 376 H (70-99) mg/dL POC Glucose 272 H (70-99) mg/dL Lactic Acid (0.4-2.0) mmol/L Calcium 7.9 L (8.5-10.1) mg/dL Magnesium (1.8-2.4) mg/dL Total Bilirubin 0.5 (0.2-1.0) mg/dL AST 13 L (15-37) U/L ALT 21 (14-59) U/L Alkaline Phosphatase 76 (46-116) U/L Ammonia (11-32) umol/L Troponin I High Sens (<=51) pg/mL Total Protein 6.3 L (6.4-8.2) g/dL Albumin 2.7 L (3.4-5.0) g/dL Globulin 3.6 Albumin/Globulin Ratio 0.75 Amylase (25-115) U/L Urine Color (YELLOW) Urine Appearance (CLEAR) Urine pH (5.0-9.0) Ur Specific Dahlgren (1.005-1.030) Urine Protein (NEGATIVE) Urine Glucose (UA) (NEGATIVE) Urine Ketones (NEGATIVE) Urine Occult Blood (NEGATIVE) Urine Nitrite (NEGATIVE) Urine Bilirubin (NEGATIVE) Urine Urobilinogen (0.2-1.0) mg/dL Ur Leukocyte Esterase (NEGATIVE) Urine RBC (0-5) /HPF Urine WBC (0-5/HPF) /HPF Ur Epithelial Cells (NOT SEEN) /HPF Urine Bacteria (0-FEW/HPF) /HPF Urine Opiates Screen (NEGATIVE) Ur Oxycodone Screen (NEGATIVE) Urine Methadone Screen (NEGATIVE) Ur Barbiturates Screen (NEGATIVE) U Tricyclic Antidepress (NEGATIVE) Ur Phencyclidine Scrn (NEGATIVE) Ur Amphetamine Screen (NEGATIVE) U Methamphetamines Scrn (NEGATIVE) Urine MDMA Screen (NEGATIVE) U Benzodiazepines Scrn (NEGATIVE) Urine Cocaine Screen (NEGATIVE) U Marijuana (THC) Screen (NEGATIVE) Ethyl Alcohol (0) mg/dL SARS CoV-2 RNA Rapid UNA (NEGATIVE) Result Diagrams: 07/01/21 06:56 07/01/21 06:56 Harvey Results Last 24 hrs: Microbiology 06/30/21 19:05 Anaerobic Blood Culture - Final Blood - Arm, Left Problem List Initiated/Reviewed/Updated: Yes Orders Last 24hrs: Active Orders 24 hr Category Date Time Status Admission Diagnosis [ADT] Stat ADT 07/01/21 08:27 Ordered Admission Status [Patient Status] [ADT] Routine ADT 07/01/21 08:27 Active Blood Glucose Check, Bedside [RC] WITHMEALSANDBED Care 07/01/21 09:58 Ordered Communication Order [RC] STAT Care 07/01/21 08:40 Active Sanchez Catheter Insertion [Insert Urinary Catheter] [OM. Care 06/30/21 22:00 Ordered PC] Q24H Oxygen Therapy [RC] PRN Care 07/01/21 09:58 Ordered Peripheral IV Care [RC] 08,20 Care 06/30/21 17:35 Active VTE/DVT Education [RC] PER UNIT ROUTINE Care 07/01/21 09:58 Ordered Vaccine to be Administered/Admin Charge [RC] ASDIRECTED Care 07/01/21 09:41 Active Vital Signs [RC] Q4H Care 07/01/21 09:58 Ordered Consistent Carbohydrate Diet [DIET] Diet 07/01/21 Lunch Ordered CULTURE BLOOD [BC] Stat Lab 06/30/21 19:00 Received CULTURE BLOOD [BC] Stat Lab 06/30/21 19:05 Results Acetaminophen [TylenoL] Med 07/01/21 09:58 Ordered 650 mg PO Q4H PRN Enoxaparin [Lovenox] Med 07/01/21 10:00 Ordered 40 mg SUBCUT DAILY Hydrocortisone Sod Succinate [Solu-CORTEF] Med 07/01/21 14:00 Ordered 100 mg IVPUSH Q8HR Norepinephrine [Levophed] 4 mg Med 06/30/21 21:00 Active Dextrose 5% in Water 246 ml IV TITRATE Pharmacy to Dose - [facility] V [Pharmacy to Dose - Med 07/02/21 09:00 Active InFluenza Vaccine] 1 each IM DAILY Sodium Chloride 0.9% [Normal Saline] 1,000 ml Med 07/01/21 10:15 Ordered IV ASDIRECTED Sodium Chloride 0.9% [Normal Saline] 1,000 ml Med 07/01/21 10:15 Ordered IV ASDIRECTED Sodium Chloride 0.9% [Saline Flush] Med 07/01/21 09:47 Active 10 ml FLUSH ASDIRECTED PRN Blood Culture x2 Reflex Set [OM.PC] Stat Oth 06/30/21 17:34 Ordered Peripheral IV Insertion Adult [OM.PC] Stat Oth 06/30/21 17:34 Ordered Medication Orders Acetaminophen (Acetaminophen 325 Mg Tab) 650 mg PO Q4H PRN PRN Reason: Pain (Mild 1-3)/fever Enoxaparin Sodium (Enoxaparin 30 Mg/0.3 Ml Syringe) 30 mg SUBCUT DAILY HEMALATHA Hydrocortisone Sodium Succinate (Hydrocortisone Sodium Succinate 100 Mg/2 Ml Sdv) 100 mg IVPUSH Q8HR HEMALATHA Norepinephrine Bitartrate 4 mg (/ Dextrose/Water) 250 mls @ 7.5 mls/hr IV TITRATE HEMALATHA; Protocol Last Titration: 07/01/21 01:20 Dose: 2 mcg/min, 7.5 mls/hr Documented by: Titration: 06/30/21 21:41 Dose: 5 mcg/min, 18.75 mls/hr Documented by: Admin: 06/30/21 21:06 Dose: 2 mcg/min, 7.5 mls/hr Documented by: ADIN Sodium Chloride (Normal Saline) 1,000 mls @ 500 mls/hr IV ASDIRECTED HEMALATHA Sodium Chloride (Normal Saline) 1,000 mls @ 100 mls/hr IV ASDIRECTED HEMALATHA Influenza Virus Vaccine (Pharmacy To Dose - Influenza Vaccine) 1 each IM DAILY HEMALATHA Sodium Chloride (Sodium Chloride 0.9% 10 Ml Syringe) 10 ml FLUSH ASDIRECTED PRN PRN Reason: Keep Vein Open Assessment/Plan Comment:: Shock, hypovolemic, mostlikely due to adrenal insufficiency crisis: improved with treatment in ER LIBORIO: most likely prerenal . improving. COntinue with IVF. adrenal insufficiency crisis: Hydrocortisone stress dose along with home medications Orthostasis hypotension: Continue with IVF. DM type 2 : continue home medications. DVT prophylaxis : Lovenox.
[2021-07-01] MEDS ORDERED: Sodium Chloride 0.9% 1,000 ML IV SCH ×2 (10:15)
[2021-07-01] MEDS: Sodium Chloride 0.9% 1,000 ML IV SCH ×2 (11:03→21:29)
[2021-07-01] MEDS: Hydrocortisone 20 MG Tab PO SCH (11:04)
[2021-07-01] MEDS: Enoxaparin 30 MG/0.3 ML Syringe SUBCUT SCH (11:04)
[2021-07-01] MEDS: Hydrocortisone Sodium Succinate 100 MG/2 ML SDV IVPUSH SCH ×2 (13:59→21:26)
[2021-07-01] MEDS ORDERED: Hydrocortisone 20 MG Tab PO SCH (14:00)
[2021-07-01] MEDS ORDERED: Glucagon,Human Recombinant 1 MG Vial IM PRN ×2 (15:33→17:22)
[2021-07-01] MEDS ORDERED: 50% Dextrose in Water 50 ML Syringe IVPUSH PRN ×2 (15:33→17:22)
[2021-07-01] MEDS ORDERED: Insulin Lispro 100 Units/ML 3 ML Vial SUBCUT ONE ×2 (17:22→21:18)
[2021-07-01] MEDS ORDERED: atorvaSTATin 20 MG Tab PO SCH (18:00)
[2021-07-01] MEDS ORDERED: Pantoprazole 40 MG Tab.CR PO SCH (21:00)
[2021-07-02] MEDS: Insulin Lispro 100 Units/ML 3 ML Vial SUBCUT SCH ×2 (01:58→09:29)
[2021-07-02] MEDS: Hydrocortisone Sodium Succinate 100 MG/2 ML SDV IVPUSH SCH (06:10)
[2021-07-02] MEDS ORDERED: Fludrocortisone 0.1 MG Tab PO SCH (08:00)
[2021-07-02] MEDS ORDERED: Clopidogrel 75 MG Tab PO SCH (09:00)
[2021-07-02] MEDS ORDERED: Aspirin 81 MG Tab.EC PO SCH (09:00)
[2021-07-02] MEDS ORDERED: Cholecalciferol (Vitamin D3) 25 MCG Tab PO SCH (09:00)
[2021-07-02] MEDS: Enoxaparin 30 MG/0.3 ML Syringe SUBCUT SCH (09:17)
[2021-07-02] MEDS: Hydrocortisone 20 MG Tab PO SCH (09:17)
[2021-07-02 09:23] VITALS: BP 113/58; PULSE 66
--- NOTE | 2021-07-02 09:45 | PCM.DCSUM1 ---
Discharge Summary - Hospital Course Free Text/Narrative:: Pt is 60 y/o women with h/o Lydia disease, came to ER because of vomiting and diarrhea rose 2-3 days. Pt was hypotensive in ER BP in ~ 70 improved to 90 after 2 L of IVF. She received Dexamethasone and started on Levophed. pt was lethargic but arousable and she is maintaining her airway. Pt is 60 y/o women with h/o Lydia disease, came to ER because of vomiting and diarrhea rose 2-3 days. Pt was found hypotensive in ER BP in ~ 70 improved to 90 after 2 L of IVF. She already received Dexamethasone and started on Levophed. She was kept in critical bed in ER Over night where she received 5 L of IVF a long with hydrocortisone stress dose. Her BP improved and she was weaned off Levophed. However, pt remained orthostatic and she was admitted to the floor for further evaluation. Her overall condition improved and Her Cr improved from 4.5 to 1.9 to ( Her baseline id 1.46). Today, she is feeling better and she was able to tolerate breakfast. No more diarrhea. She had no more orthostatic changes and she is requesting to go home. 1- Shock due to Lydia crisis: resolved. to continue with home medications ( Hydrocortisone 20 mg in am and 10 mg in PM along with Florinef). 2- LIBORIO on CKD: improved 2- CAD, DM, Cardiomyopathy, HTN: continue with home medications. Diagnosis: Stroke: No - Discharge Data Discharge Date: 07/02/21 Discharge Disposition: Home, Self-Care 01 Condition: Good - Referral to Home Health Primary Care Physician: PCP None - Patient Instructions Diet: Heart Healthy Diet Fluid Restriction: 2000 mL Activity: As Tolerated Notify Provider of: Fever, Increased Pain, Swelling and Redness, Nausea and/or Vomiting - Discharge Plan *PRESCRIPTION DRUG MONITORING PROGRAM REVIEWED*: Not Applicable *COPY OF PRESCRIPTION DRUG MONITORING REPORT IN PATIENT MARY: Not Applicable Home Medications: Home Meds Fludrocortisone [Florinef] 0.1 mg PO WITHBREAKFAST 09/15/15 [History] Hydrocortisone 10 mg PO DAILY@1400 09/15/15 [History] Lisinopril 2.5 mg PO DAILY 11/21/16 [History] Aspirin [Aspirin EC] 81 mg PO DAILY 06/30/21 [History] Cholecalciferol (Vitamin D3) [Vitamin D3] 75 mcg PO DAILY 06/30/21 [History] Clopidogrel Bisulfate [Plavix] 75 mg PO DAILY 06/30/21 [History] Hydrocortisone 20 mg PO DAILY 06/30/21 [History] atorvaSTATin Calcium [Atorvastatin Calcium] 40 mg PO WITHDINNER 06/30/21 [History] metFORMIN [Glucophage] 500 mg PO DAILY 06/30/21 [History] Alendronate Sodium [Fosamax] 70 mg PO .TUES 07/01/21 [History] carvediloL [Carvedilol] 3.125 mg PO BIDMEALS 07/01/21 [History] Hydrocortisone [Cortef] 10 mg PO DAILY@1400 tablet 07/02/21 [Rx] Forms: ED Department Discharge Referrals: PCP,None [Primary Care Provider] - - Discharge Summary/Plan Comment DC Time >30 min.: No Total # of Minutes for Discharge Time: 25 - General Info Date of Service: 07/02/21 Functional Status: Reports: Pain Controlled, Tolerating Diet - Review of Systems General: Denies: No Symptoms, Fever Pulmonary: Denies: Shortness of Breath Cardiovascular: Denies: Chest Pain Gastrointestinal: Denies: Abdominal Pain, Nausea, Vomiting Neurological: Denies: Confusion Psychiatric: Denies: Confusion - Patient Data Vitals - Most Recent: Last Vital Signs Temp 98.6 F 07/02/21 08:00 Pulse 66 07/02/21 08:00 Resp 16 07/02/21 08:00 BP 113/58 L 07/02/21 08:00 Pulse Ox 97 07/02/21 08:00 Orthostatic Blood Pressure [ 128/60 Standing] Orthostatic Blood Pressure [ 118/65 Sitting] Orthostatic Blood Pressure [ 113/56 Supine] Weight - Most Recent: 164 lb 3.2 oz I&O - Last 24 hours: Intake & Output 07/01/21 07/02/21 07/02/21 22:59 06:59 14:59 Intake Total 200 350 Output Total 350 Balance -150 350 Lab Results - Last 24 hrs: Laboratory Results - last 24 hr 07/01/21 07/01/21 07/01/21 Range/Units 11:41 16:47 21:12 POC Glucose 396 H 426 H* 408 H* (70-99) mg/dL 07/02/21 Range/Units 08:02 POC Glucose 324 H (70-99) mg/dL MADYSON Results - Last 24 hrs: Microbiology 06/30/21 19:05 Aerobic Blood Culture - Preliminary Blood - Arm, Left NO GROWTH AFTER 1 DAY Anaerobic Blood Culture - Final 06/30/21 19:00 Aerobic Blood Culture - Preliminary Blood - Arm, Right NO GROWTH AFTER 1 DAY Anaerobic Blood Culture - Preliminary NO GROWTH AFTER 1 DAY Med Orders - Current: Current Medications Acetaminophen (Acetaminophen 325 Mg Tab) 650 mg PO Q4H PRN PRN Reason: Pain (Mild 1-3)/fever Aspirin (Aspirin 81 Mg Tab.Ec) 81 mg PO DAILY [facility] Last Admin: 07/02/21 09:16 Dose: 81 mg Documented by: Atorvastatin Calcium (Atorvastatin 20 Mg Tab) 40 mg PO WITHDINNER [facility] Last Admin: 07/01/21 17:38 Dose: 40 mg Documented by: Cholecalciferol (Cholecalciferol (Vitamin D3) 25 Mcg Tab) 75 mcg PO DAILY [facility] Last Admin: 07/02/21 09:16 Dose: 75 mcg Documented by: Clopidogrel Bisulfate (Clopidogrel 75 Mg Tab) 75 mg PO DAILY [facility] Last Admin: 07/02/21 09:16 Dose: 75 mg Documented by: Dextrose/Water (50% Dextrose In Water 50 Ml Syringe) 50 ml IVPUSH Q15M PRN PRN Reason: Hypoglycemia Dextrose/Water (50% Dextrose In Water 50 Ml Syringe) 50 ml IVPUSH Q15M PRN PRN Reason: Hypoglycemia Enoxaparin Sodium (Enoxaparin 30 Mg/0.3 Ml Syringe) 30 mg SUBCUT DAILY [facility] Last Admin: 07/02/21 09:17 Dose: 30 mg Documented by: Fludrocortisone Acetate (Fludrocortisone 0.1 Mg Tab) 0.1 mg PO WITHBREAKFAST [facility] Last Admin: 07/02/21 09:17 Dose: 0.1 mg Documented by: Glucagon (Glucagon,Human Recombinant 1 Mg Vial) 1 mg IM Q15M PRN PRN Reason: Hypoglycemia Glucagon (Glucagon,Human Recombinant 1 Mg Vial) 1 mg IM Q15M PRN PRN Reason: Hypoglycemia Hydrocortisone (Hydrocortisone 20 Mg Tab) 10 mg PO DAILY@1400 [facility] Last Admin: 07/01/21 13:56 Dose: 10 mg Documented by: Hydrocortisone (Hydrocortisone 20 Mg Tab) 20 mg PO DAILY [facility] Last Admin: 07/02/21 09:17 Dose: 20 mg Documented by: Hydrocortisone Sodium Succinate (Hydrocortisone Sodium Succinate 100 Mg/2 Ml Sdv) 100 mg IVPUSH Q8HR [facility] Last Admin: 07/02/21 06:10 Dose: 100 mg Documented by: Norepinephrine Bitartrate 4 mg (/ Dextrose/Water) 250 mls @ 7.5 mls/hr IV TITRATE HEMALATHA; Protocol Last Titration: 07/01/21 01:20 Dose: 2 mcg/min, 7.5 mls/hr Documented by: Sodium Chloride (Normal Saline) 1,000 mls @ 100 mls/hr IV ASDIRECTED HEMALATHA Last Admin: 07/01/21 21:29 Dose: 100 mls/hr Documented by: Influenza Virus Vaccine (Pharmacy To Dose - Influenza Vaccine) 1 each IM DAILY [facility] Insulin Human Lispro (Insulin Lispro 100 Units/Ml 3 Ml Vial) 0 unit SUBCUT WITHMEALSANDBED [facility]; Protocol Last Admin: 07/02/21 09:29 Dose: 4 units Documented by: Pantoprazole Sodium (Pantoprazole 40 Mg Tab.Cr) 40 mg PO BEDTIME [facility] Last Admin: 07/01/21 21:26 Dose: 40 mg Documented by: Sodium Chloride (Sodium Chloride 0.9% 10 Ml Syringe) 10 ml FLUSH ASDIRECTED PRN PRN Reason: Keep Vein Open Discontinued Medications Al Hydroxide/Mg Hydroxide (Gi Cocktail Oral Solution 30 Ml) 30 ml PO ONETIME ONE Stop: 07/01/21 05:44 Last Admin: 07/01/21 05:50 Dose: 30 ml Documented by: Calcium Carbonate/Glycine (Calcium Carbonate 500 Mg Tab.Chew) 1,000 mg PO ONETIME ONE Stop: 07/01/21 02:40 Last Admin: 07/01/21 02:49 Dose: 1,000 mg Documented by: Dexamethasone (Dexamethasone 4 Mg/Ml Sdv) 8 mg IVPUSH ONETIME ONE Stop: 06/30/21 17:34 Last Admin: 06/30/21 17:43 Dose: 8 mg Documented by: Hydrocortisone Sodium Succinate (Hydrocortisone Sodium Succinate 100 Mg/2 Ml Sdv) 100 mg IVPUSH ONETIME ONE Stop: 06/30/21 22:59 Last Admin: 06/30/21 23:21 Dose: 100 mg Documented by: Sodium Chloride (Normal Saline) 1,000 mls @ 999 mls/hr IV .BOLUS ONE Stop: 06/30/21 18:34 Last Infusion: 06/30/21 23:25 Dose: Infused Documented by: Sodium Chloride (Normal Saline) 1,000 mls @ 999 mls/hr IV .BOLUS ONE Stop: 06/30/21 19:10 Last Infusion: 06/30/21 23:26 Dose: Infused Documented by: Sodium Chloride (Normal Saline) 1,000 mls @ 999 mls/hr IV .BOLUS ONE Stop: 06/30/21 21:58 Last Infusion: 06/30/21 23:26 Dose: Infused Documented by: Levofloxacin/Dextrose 500 mg/ (Premix) 100 mls @ 100 mls/hr IV ONETIME ONE Stop: 06/30/21 22:56 Last Admin: 06/30/21 22:11 Dose: 100 mls/hr Documented by: Sodium Chloride (Normal Saline) 1,000 mls @ 999 mls/hr IV .BOLUS ONE Stop: 06/30/21 23:08 Last Infusion: 06/30/21 23:26 Dose: Infused Documented by: Sodium Chloride (Normal Saline) 1,000 mls @ 150 mls/hr IV CONTINUOUS ONE Stop: 07/01/21 05:55 Last Admin: 06/30/21 23:21 Dose: 150 mls/hr Documented by: Sodium Chloride (Normal Saline) 1,000 mls @ 100 mls/hr IV ASDIRECTED HEMALATHA Insulin Human Lispro (Insulin Lispro 100 Units/Ml 3 Ml Vial) 8 unit SUBCUT ONETIME ONE Stop: 07/01/21 17:23 Last Admin: 07/01/21 17:40 Dose: 8 units Documented by: Insulin Human Lispro (Insulin Lispro 100 Units/Ml 3 Ml Vial) 10 unit SUBCUT ONE TIME ONE Stop: 07/01/21 21:19 Last Admin: 07/01/21 21:32 Dose: 10 units Documented by: Naloxone HCl (Naloxone 2 Mg/2 Ml Syringe) 2 mg IVPUSH ONETIME ONE Stop: 06/30/21 21:55 Last Admin: 07/01/21 10:45 Dose: Not Given Documented by: Ondansetron HCl (Ondansetron 4 Mg/2 Ml Sdv) 4 mg IV ONETIME ONE Stop: 06/30/21 17:35 Last Admin: 06/30/21 17:49 Dose: 4 mg Documented by: Sodium Chloride (Sodium Chloride 0.9% 10 Ml Syringe) 10 ml FLUSH ASDIRECTED PRN PRN Reason: Keep Vein Open Last Admin: 06/30/21 17:30 Dose: 10 ml Documented by: - Exam Quality Assessment: Denies: Supplemental Oxygen General: Reports: Alert, Oriented HEENT: Reports: EOMI Lungs: Reports: Clear to Auscultation Cardiovascular: Reports: Regular Rate, Regular Rhythm GI/Abdominal Exam: Soft, Non-Tender Extremities: Normal Inspection Skin: Reports: Warm, Dry Neurological: Reports: No New Focal Deficit Psy/Mental Status: Reports: Alert, Normal Affect
== END 2021-07-02 10:25 | disposition home or self-care (01) | DRG 643 ==
LOC: DL.ED 17:09 → DL.MS 07-01 08:27
PROVIDERS: ADMIT Internal Medicine; ATTEND Internal Medicine
PROC: 3E033XZ Introduction of Vasopressor into Peripheral Vein, Percutaneous Approach (ICD-10-PCS; principal; 2021-07-01)
PROC: 3E02340 Introduction of Influenza Vaccine into Muscle, Percutaneous Approach (ICD-10-PCS; 2021-07-01)
DX: E27.2 Addisonian crisis (principal); R57.1 Hypovolemic shock; N17.9 Acute kidney failure, unspecified; I95.1 Orthostatic hypotension; E11.9 Type 2 diabetes mellitus without complications; H54.7 Unspecified visual loss; Z79.82 Long term (current) use of aspirin; Z79.84 Long term (current) use of oral hypoglycemic drugs; Z79.899 Other long term (current) drug therapy; Z87.440 Personal history of urinary (tract) infections; Z90.49 Acquired absence of other specified parts of digestive tract; Z23 Encounter for immunization
CPT/HCPCS: 36410; 36415; 36600; 51702; 71045; 80048; 80053; 80305-QW; 80307; 81001; 82140; 82150; 82803; 82947; 83605; 83735; 84484; 85025; 87040; 90686; 93005; 96365; 96375; 99285-25; A9270-GY; J1100; J1650; J1720; J1815-GY; J1956; J2405; J7030; J7060; U0002

== ENCOUNTER 2021-11-20 01:04 | Emergency (ER) | payer MEDICAID ==
[2021-11-20] MEDS ORDERED: Aspirin 81 MG Tab.Chew PO ONE (01:10)
[2021-11-20 01:17] VITALS: BP 137/75; PULSE 56
[2021-11-20] MEDS ORDERED: Ondansetron 4 MG/2 ML SDV IVPUSH ONE (01:48)
[2021-11-20 01:51] LABS: AMPHETAMINES,URINE NEGATIVE (NEGATIVE); BARBITURATES,URINE NEGATIVE (NEGATIVE); BENZODIAZEPINE,URINE NEGATIVE (NEGATIVE); MDMA (ECSTASY), URINE NEGATIVE (NEGATIVE); METHADONE,URINE NEGATIVE (NEGATIVE); METHAMPHETAMINES,URINE NEGATIVE (NEGATIVE); OPIATES,URINE NEGATIVE (NEGATIVE); OXYCODONE,URINE NEGATIVE (NEGATIVE); PHENCYCLIDINE,URINE NEGATIVE (NEGATIVE); TCA,URINE NEGATIVE (NEGATIVE)
[2021-11-20 01:54] LABS: ANION GAP 12.1 mEq/L (7-13); CHLORIDE,CL 102 mmol/L (98-107); SODIUM,NA 139 mmol/L (136-145)
[2021-11-20] MEDS ORDERED: Potassium Chloride 10 MEQ in Premix Bag 1 BAG IV ONE (02:01)
[2021-11-20 02:11] LABS: CORONAVIRUS COVID-19 NAA NEGATIVE (NEGATIVE)
[2021-11-20] MEDS ORDERED: Sodium Chloride 0.9% 1,000 ML IV SCH (02:15)
== END 2021-11-20 03:20 | disposition home or self-care (01) ==
LOC: DL.ED 01:04
DX: K21.9 Gastro-esophageal reflux disease without esophagitis (principal); E87.6 Hypokalemia; I25.2 Old myocardial infarction; E11.9 Type 2 diabetes mellitus without complications; Z79.82 Long term (current) use of aspirin; Z79.84 Long term (current) use of oral hypoglycemic drugs; Z79.899 Other long term (current) drug therapy; Z86.16 Personal history of COVID-19; Z95.5 Presence of coronary angioplasty implant and graft; Z20.822 Contact with and (suspected) exposure to COVID-19
CPT/HCPCS: 0240U; 36415; 71045; 80053; 80305; 80307; 81001; 83605; 84484; 85025; 85379; 85610; 87040; 87086; 93005; 96365; 96375; 99285; A9270; J2405; J3480; J7030; 93010; 99284

== ENCOUNTER 2021-11-21 07:19 | Emergency (ER) | payer MEDICAID ==
[2021-11-21] MEDS ORDERED: Naloxone 2 MG/2 ML Syringe ONE (07:42)
[2021-11-21] MEDS ORDERED: Naloxone 2 MG/2 ML Syringe IVPUSH ONE (07:47)
[2021-11-21] MEDS ORDERED: Sodium Chloride 0.9% 1,000 ML IV SCH ×2 (08:00→09:45)
[2021-11-21 08:10] LABS: ANION GAP 13.9 mEq/L (7-13); CHLORIDE,CL 97 mmol/L (98-107); SODIUM,NA 133 mmol/L (136-145)
[2021-11-21 08:31] VITALS: BP 57/22; PULSE 99
[2021-11-21] MEDS ORDERED: methylPREDNISolone Sodium Succinate 125 MG/2 ML SDV IVPUSH ONE ×2 (08:40→08:48)
[2021-11-21] MEDS ORDERED: cefTRIAXone 1 GM in Sodium Chloride 0.9% 50 ML IV ONE (08:45)
[2021-11-21] MEDS ORDERED: Piperacillin/Tazobactam 3.375 GM in Sodium Chloride 0.9% 100 ML IV ONE (08:47)
[2021-11-21 09:23] LABS: CORONAVIRUS COVID-19 NAA NEGATIVE (NEGATIVE)
[2021-11-21 11:06] LABS: AMPHETAMINES,URINE NEGATIVE (NEGATIVE); BARBITURATES,URINE NEGATIVE (NEGATIVE); BENZODIAZEPINE,URINE NEGATIVE (NEGATIVE); MDMA (ECSTASY), URINE NEGATIVE (NEGATIVE); METHADONE,URINE NEGATIVE (NEGATIVE); METHAMPHETAMINES,URINE NEGATIVE (NEGATIVE); OPIATES,URINE NEGATIVE (NEGATIVE); OXYCODONE,URINE NEGATIVE (NEGATIVE); PHENCYCLIDINE,URINE NEGATIVE (NEGATIVE); TCA,URINE NEGATIVE (NEGATIVE)
[2021-11-21] MEDS ORDERED: Sodium Chloride 0.9% 1,000 ML IV ONE (11:25)
== END 2021-11-21 14:13 ==
LOC: DL.ED 07:19
DX: A41.9 Sepsis, unspecified organism (principal); R65.21 Severe sepsis with septic shock; N17.9 Acute kidney failure, unspecified; K80.00 Calculus of gallbladder with acute cholecystitis without obstruction; N39.0 Urinary tract infection, site not specified; E11.9 Type 2 diabetes mellitus without complications; I25.2 Old myocardial infarction; E27.2 Addisonian crisis; E87.1 Hypo-osmolality and hyponatremia; E83.42 Hypomagnesemia; Z86.16 Personal history of COVID-19; Z79.82 Long term (current) use of aspirin; Z79.84 Long term (current) use of oral hypoglycemic drugs; Z79.899 Other long term (current) drug therapy; Z20.822 Contact with and (suspected) exposure to COVID-19
CPT/HCPCS: 0240U; 36415; 70450; 71045; 71250; 76705; 80053; 80305; 80307; 81001; 83605; 83690; 83735; 85025; 87040; 93005; 96365; 96368; 96375; 99285; J0696; J2310; J2543; J2930; J7030